=== PATIENT | male | born 1955 | race Caucasian/White ===

== ENCOUNTER 2017-06-22 14:18 | Emergency (ER) | payer OTHER, BC ==
[~2017-06-22] VITALS: Ht 166.4 cm; Wt 100.5 kg
[~2017-06-22 14:18] MED LIST: ASPI1TAB83 PO; CLC6 PO; INSDGIPEN SC; LISI-461 PO; LPT40 PO; METF1000 PO; MTR600X PO; MULTTAB58 PO; NICO4GUM PO; PRT40 PO; ZLF/100 PO
[2017-06-22 14:20] VITALS: TEMP 36.6; Ht 166.4 cm; Wt 100.5 kg
[2017-06-22] MEDS ORDERED: SODIUM CHLORIDE 0.9% 1000ML 1,000 ML IV STA (14:35)
[2017-06-22] MEDS ORDERED: OPTIRAY 320 IV PRN (14:45)
--- NOTE | 2017-06-22 15:02 | EMERGENCY ROOM VISIT NOTE ---
History Report prepared by Cassi: Kp Gates Under the Supervision of: Dr. Ramsey Morley D.O. First contact with patient: 14:24 Chief Complaint: GI ASSESSMENT Stated Complaint: CANT POO CORRECTLY FOR ABOUT 2 MONTHS History of Present Illness The patient is a 61 year old male who presents to the Emergency Room with complaints of intermittent, generalized, abdominal pain beginning a week ago. He currently rates his discomfort a 3/10 in severity. The patient states [facility] and told he has [facility] partial block[facility]. He reports he is able to pass gas, and he passes gas frequently. The patient notes he also passes a large amount of fluid without solid stool. He states he has not passed solid stool for a few weeks, and he passed liquid this morning. The patient reports eating sometimes worsens his discomfort. He denies recent antibiotic use , recent trip, recent travel, [place] recently, vomiting, drinking from streams recently, cough, congestion, and fevers. The patient notes a history of an appendectomy. Source of History: patient Onset: a week ago Position: abdomen (generalized) Symptom Intensity: 3/10 Timing: intermittent Modifying Factors (Worsening): eating (intermittently worsens) Associated Symptoms: No fevers, No cough, No vomiting Note: Associated symptoms: liquid stool, passing gas Denies: recent antibiotic use, recent trip, recent travel, hiking [place] the [place] recently, drinking from streams recently, congestion Review of Systems See HPI for pertinent positives & negatives. A total of 10 systems reviewed and were otherwise negative. Past Medical & Surgical Medical Problems: (1) Back pain with right-sided sciatica (2) Chest pain (3) Depression (4) Diabetes mellitus, type II (5) Dyslipidemia (6) GERD (gastroesophageal reflux disease) (7) H/O pericarditis (8) Intractable back pain (9) Spinal stenosis Surgical Problems: (1) History of appendectomy (2) History of arthroscopic procedure on shoulder (3) Status post lumbar spinal fusion Family History Cervical cancer Depression FH: thyroid disease Social History Smoking Status: Former Smoker Drug Use: none Marital Status: Housing Status: lives with significant other Occupation Status: disabled Current/Historical Medications Scheduled Aspirin (Aspirin), 81 MG PO DAILY Atorvastatin (Lipitor), 40 MG PO DAILY Colchicine (Colcrys), 0.6 MG PO BID Ibuprofen (Ibuprofen), 600 MG PO Q8H Insulin Glargine (Lantus Solostar), 43 SC AMPM Lisinopril (Zestril), 10 MG PO HS Metformin Hcl (Glucophage), 1,000 MG PO BID Multiple Vitamin (Multivitamin), 1 TAB PO DAILY Nicotine Polacrilex (Nicotine Polacrilex), 1 PIECE PO Q2H Pantoprazole (Pantoprazole Sodium), 40 MG PO DAILY Sertraline HCl (Sertraline HCl), 50 MG PO DAILY Allergies Coded Allergies: Statins (Verified Adverse Reaction, Unknown, MUSCLE ACHES, 06/22/17) TOLERATING ATORVASTATIN Physical Exam Vital Signs Date Time Temp Pulse Resp B/P (MAP) Pulse Ox O2 Delivery O2 Flow Rate FiO2 06/22/17 17:44 90 140/85 95 06/22/17 15:49 88 136/88 95 Room Air 06/22/17 14:20 36.6 106 20 155/95 95 Room Air Physical Exam GENERAL: Sitting up in bed, alert, well appearing, well nourished, no distress, non-toxic EYE EXAM: normal conjunctiva. OROPHARYNX: no exudate, no erythema, lips, buccal mucosa, and tongue normal and mucous membranes are moist NECK: supple, no nuchal rigidity, no adenopathy, non-tender LUNGS: Clear to auscultation. Normal chest wall mechanics HEART: no murmurs, S1 normal and S2 normal ABDOMEN: abdomen soft, non-tender, normo-active bowel sounds, no masses, no rebound or guarding. BACK: Back is symmetrical on inspection and there is no deformity, no midline tenderness, no CVA tenderness. SKIN: no rashes and no bruising UPPER EXTREMITIES: upper extremities are grossly normal. LOWER EXTREMITIES: No pitting edema. NEURO EXAM: Normal sensorium, cranial nerves II-XII grossly intact, normal speech, no gross weakness of arms, no gross weakness of legs. Medical Decision & Procedures ER Provider Diagnostic Interpretation: CT:Per my review, radiologist interpretation. CT ABD/PELVIS IV CONTRAST ONLY CLINICAL HISTORY: Generalized abdominal pain COMPARISON STUDY: 11/09/2014 TECHNIQUE: Following the IV administration of 94 mL of Optiray-320, CT scan of the abdomen and pelvis was performed from the lung bases to the proximal femurs. Images are reviewed in the axial, sagittal, and coronal planes. IV contrast was administered without complication. A dose lowering technique was utilized adhering to the principles of ALARA. CT DOSE: 1044.21 mGy.cm FINDINGS: Lower chest: The heart is normal in size and configuration, without pericardial effusion. The lung bases and pleural spaces are clear. Liver: There is hepatic steatosis. No focal masses are visualized. There is focal fatty sparing adjacent to the gallbladder fossa Gallbladder: Cholelithiasis. Spleen: Normal in size and attenuation. Pancreas: Unremarkable. Adrenal glands: Unremarkable. Kidneys: There is a 58 mm right renal cortical cyst. No solid renal masses are visualized. Bowel: There are no transition zones indicate bowel obstruction. By history the appendix is surgically absent. There is no evidence of acute diverticulitis. Peritoneum: There is no intraperitoneal free air or abdominal ascites. There are small) left fat-containing inguinal hernias Vasculature: The abdominal aorta is normal in course and caliber. Adenopathy: None. Pelvic viscera: The bladder, and pelvic viscera are unremarkable. Skeletal structures: There are postsurgical changes present within the lumbar spine. IMPRESSION: 1. No acute intra-abdominal or pelvic findings 2. Hepatic steatosis 3. Cholelithiasis 4. No evidence of bowel obstruction. No evidence of free air 5. Surgically absent appendix 6. No evidence of acute diverticulitis. 7. Small fat-containing inguinal hernias. Electronically signed by: Alexandre Cano M.D. 06/22/2017 4:54 PM Dictated Date/Time: 06/22/2017 4:50 PM Laboratory Results 06/22/17 14:50 Red Blood Count 4.51, Mean Corpuscular Volume 84.9, Mean Corpuscular Hemoglobin 31.0, Mean Corpuscular Hemoglobin Concent 36.6, Mean Platelet Volume 10.2, Neutrophils (%) (Auto) 58.3, Lymphocytes (%) (Auto) 29.3, Monocytes (%) (Auto) 8.5, Eosinophils (%) (Auto) 3.2, Basophils (%) (Auto) 0.4, Neutrophils # (Auto) 4.06, Lymphocytes # (Auto) 2.04, Monocytes # (Auto) 0.59, Eosinophils # (Auto) 0.22, Basophils # (Auto) 0.03 06/22/17 14:50 Test 06/22/17 14:50 White Blood Count 6.96 K/uL (4.8-10.8) Red Blood Count 4.51 M/uL (4.7-6.1) Hemoglobin 14.0 g/dL (14.0-18.0) Hematocrit 38.3 % (42-52) Mean Corpuscular Volume 84.9 fL (80-100) Mean Corpuscular Hemoglobin 31.0 pg (25-34) Mean Corpuscular Hemoglobin Concent 36.6 g/dl (32-36) Platelet Count 267 K/uL (130-400) Mean Platelet Volume 10.2 fL (7.4-10.4) Neutrophils (%) (Auto) 58.3 % Lymphocytes (%) (Auto) 29.3 % Monocytes (%) (Auto) 8.5 % Eosinophils (%) (Auto) 3.2 % Basophils (%) (Auto) 0.4 % Neutrophils # (Auto) 4.06 K/uL (1.4-6.5) Lymphocytes # (Auto) 2.04 K/uL (1.2-3.4) Monocytes # (Auto) 0.59 K/uL (0.11-0.59) Eosinophils # (Auto) 0.22 K/uL (0-0.5) Basophils # (Auto) 0.03 K/uL (0-0.2) RDW Standard Deviation 40.0 fL (36.4-46.3) RDW Coefficient of Variation 12.9 % (11.5-14.5) Immature Granulocyte % (Auto) 0.3 % Immature Granulocyte # (Auto) 0.02 K/uL (0.00-0.02) Anion Gap 8.0 mmol/L (3-11) Est Creatinine Clear Calc Drug Dose 70.0 ml/min Estimated GFR () 73.7 Estimated GFR (Non- 63.6 BUN/Creatinine Ratio 13.3 (10-20) Calcium Level 9.2 mg/dl (8.5-10.1) Total Bilirubin 0.9 mg/dl (0.2-1) Direct Bilirubin mg/dl (0-0.2) Aspartate Amino Transf (AST/SGOT) 71 U/L (15-37) Alanine Aminotransferase (ALT/SGPT) 185 U/L (12-78) Alkaline Phosphatase 99 U/L (45-117) Total Protein 7.1 gm/dl (6.4-8.2) Albumin 3.8 gm/dl (3.4-5.0) Lipase 206 U/L (73-393) Chemistry Specimen Hemolysis Laboratory results per my review. Medications Administered Medications (Trade) Dose Ordered Sig/Chioma Route Start Time Stop Time Status Last Admin Dose Admin Sodium Chloride 1,000 ml @ 999 mls/hr Q1H1M STAT IV 06/22/17 14:35 06/22/17 15:35 DC 06/22/17 14:52 999 MLS/HR ED Course ED COURSE: Vital signs were reviewed and showed situational hypertension and tachycardia. The patients medical record was reviewed The above diagnostic studies were performed and reviewed. ED treatments and interventions as stated above. 1428: The patient was evaluated in room C12B. A complete history and physical examination was performed. 1435: Ordered Sodium Chloride 1000 ml @ 999 mls/hr IV 1730: Upon reevaluation, the patient is resting comfortably. I discussed my findings with the patient and he understands and agrees with the treatment plan. Based on the patients age, coexisting illnesses, exam and lab findings the decision to treat as an outpatient was made. The patient remained stable while under my care. The patient appeared well at the time of discharge. Medical Decision Differential diagnoses includes but is not limited to gastritis, peptic ulcer disease, GERD, gallbladder disease, pancreatitis, small bowel obstruction, acute coronary syndrome, pericarditis, ischemic bowel, irritable bowel disease, irritable bowel syndrome, appendicitis, diverticulitis, malignancy, hernia, urinary tract infection, torsion, perforation, trauma, infectious. Patient is a 51-year-old male that presents the ER for abdominal fullness, pain and diarrhea. He notes he has had abdominal pain for the past 2 weeks. He was told by his primary care physician that he may have an obstruction was sent in for evaluation. On exam he is otherwise fairly unremarkable. There is no signs of peritonitis. No vomiting. He is moving stool through. He is also eating and keeping food down. No fevers. Vitals are stable. IV was established and labs were obtained. CBC along with BMP, LFTs, bilirubin lipase is unremarkable. Patient has no urinary complaints. CT abdomen pelvis was unremarkable. Patient was given fluids and felt significantly better. He was updated at bedside. Nothing to suggest obstruction. Any infectious etiology within the abdomen. He was updated and discharged follow-up with PCP as an outpatient. He will try MiraLAX prep as he does feel constipated. Discussed with Pt concerning signs and symptoms to watch out for. Pt was instructed to follow up with their PCP and discussed with the patient their option to return to the ED at anytime for persistent or worsening symptoms. The appropriate anticipatory guidance and out-patient management, including indications for return to the emergency department, were explained at length to the patient and understood. Medication Reconcilliation Current Medication List: was personally reviewed by me Blood Pressure Screening Patient's blood pressure: Elevated blood pressure Blood pressure disposition: Elevated BP felt to be situational Impression Primary Impression: Abdominal pain Scribe Attestation The scribe's documentation has been prepared under my direction and personally reviewed by me in its entirety. I confirm that the note above accurately reflects all work, treatment, procedures, and medical decision making performed by me. Departure Information Dispostion Home / Self-Care Referrals Brandon Jay III, M.D. (PCP) Forms HOME CARE DOCUMENTATION FORM, IMPORTANT VISIT INFORMATION Patient Instructions Abdominal Pain - [facility], [facility] Additional Instructions Please follow up with your primary care doctor with in the next 24 hours. Any worsening of your symptoms, please return to the ED immediately. This includes any fevers greater than 100.4, worsening pain, chest pain, shortness breath, persistent nausea, vomiting, unable to eat or drink, or any other concerning signs or symptoms from your standpoint. Please take small bottle of MiraLAX 250 g and mix with 64 ounces of Gatorade. Please drink 8 ounces every 15-20 minutes until you have a bowel movement. At this time he will continue to have diarrhea. Please try to remain hydrated. Problem Qualifiers Primary Impression: Abdominal pain Abdominal location: unspecified location Qualified Codes: R10.9 - Unspecified abdominal pain
[2017-06-22 15:36] LABS: BASO % 0.4 %; BASO ABS # 0.03 K/uL (0-0.2); EOS % 3.2 %; EOS ABS # 0.22 K/uL (0-0.5); HEMATOCRIT 38.3 % (42-52); IG# 0.02 K/uL (0.00-0.02); LYMPH % 29.3 %; LYMPH ABS # 2.04 K/uL (1.2-3.4); MEAN CELL VOLUME 84.9 fL (80-100); MEAN CORPUSCULAR HGB CONC 36.6 g/dl (32-36); MEAN PLATELET VOLUME 10.2 fL (7.4-10.4); MONO % 8.5 %; MONO ABS # 0.59 K/uL (0.11-0.59); NEUT % 58.3 %; NEUT ABS # 4.06 K/uL (1.4-6.5); PLATELET COUNT 267 K/uL (130-400); RED CELL DISTRIBUTION WIDTH CV 12.9 % (11.5-14.5); WHITE BLOOD COUNT 6.96 K/uL (4.8-10.8)
[2017-06-22 15:49] LABS: ALBUMIN 3.8 gm/dl (3.4-5.0); CALCIUM 9.2 mg/dl (8.5-10.1); TOTAL PROTEIN 7.1 gm/dl (6.4-8.2)
[2017-06-22 15:54] LABS: CREATININE 1.22 mg/dl (0.60-1.40)
--- NOTE | 2017-06-22 16:56 | DIAGNOSTIC IMAGING REPORT ---
CT ABD/PELVIS IV CONTRAST ONLY CLINICAL HISTORY: Generalized abdominal pain COMPARISON STUDY: 11/09/2014 TECHNIQUE: Following the IV administration of 94 mL of Optiray-320, CT scan of the abdomen and pelvis was performed from the lung bases to the proximal femurs. Images are reviewed in the axial, sagittal, and coronal planes. IV contrast was administered without complication. A dose lowering technique was utilized adhering to the principles of ALARA. CT DOSE: 1044.21 mGy.cm FINDINGS: Lower chest: The heart is normal in size and configuration, without pericardial effusion. The lung bases and pleural spaces are clear. Liver: There is hepatic steatosis. No focal masses are visualized. There is focal fatty sparing adjacent to the gallbladder fossa Gallbladder: Cholelithiasis. Spleen: Normal in size and attenuation. Pancreas: Unremarkable. Adrenal glands: Unremarkable. Kidneys: There is a 58 mm right renal cortical cyst. No solid renal masses are visualized. Bowel: There are no transition zones indicate bowel obstruction. By history the appendix is surgically absent. There is no evidence of acute diverticulitis. Peritoneum: There is no intraperitoneal free air or abdominal ascites. There are small) left fat-containing inguinal hernias Vasculature: The abdominal aorta is normal in course and caliber. Adenopathy: None. Pelvic viscera: The bladder, and pelvic viscera are unremarkable. Skeletal structures: There are postsurgical changes present within the lumbar spine. IMPRESSION: 1. No acute intra-abdominal or pelvic findings 2. Hepatic steatosis 3. Cholelithiasis 4. No evidence of bowel obstruction. No evidence of free air 5. Surgically absent appendix 6. No evidence of acute diverticulitis. 7. Small fat-containing inguinal hernias. Electronically signed by: Alexandre Cano M.D. 06/22/2017 4:54 PM Dictated Date/Time: 06/22/2017 4:50 PM
[2017-06-22 17:44] VITALS: BP 140/85; PULSE 90; O2SAT 95
== END 2017-06-22 17:47 | disposition home or self-care (01) ==
LOC: C.EDB 14:19 → C.EDC 17:47
DX: R10.9 Unspecified abdominal pain (principal); F32.9 Major depressive disorder, single episode, unspecified; E11.9 Type 2 diabetes mellitus without complications; E78.5 Hyperlipidemia, unspecified; K21.9 Gastro-esophageal reflux disease without esophagitis; Z98.1 Arthrodesis status; Z80.49 Family history of malignant neoplasm of other genital organs; Z81.8 Family history of other mental and behavioral disorders; Z87.891 Personal history of nicotine dependence; Z79.82 Long term (current) use of aspirin; Z79.4 Long term (current) use of insulin; Z79.84 Long term (current) use of oral hypoglycemic drugs; Z79.899 Other long term (current) drug therapy; Z88.8 Allergy status to other drugs, medicaments and biological substances

== ENCOUNTER 2019-08-15 05:42 | Observation (INO) ==
--- NOTE | 2019-08-13 08:26 | Anesthesiology Consultation ---
Date of Service August 13, 2019 Assessment & Plan (1) Encounter for pre-operative examination: COVID Status: As of 08/10 nurse assessment, patient denies travel to endemic area, known exposure/sick contacts, or symptoms of COVID19. Preoperative COVID19 testing completed on 08/11, results pending. Chart Review Chart Review: Acceptable Risk for Surgery and Patient NOT seen in Pre Admission Testing Consults Requested none ASA ASA3 Proposed Anesthesia Anesthesia Type: General Risk / Benefits Reviewed With: PT / POA / Parent / Guardian, Accepts Plan and Informed Consent Obtained Additional Comments: covid test negative History Surgery Operation Date: 08/15/19 07:15 Proposed Procedures p Right Thyroid Lobectomy, Possible Total - Uzbek How MD [place] Height/Weight Height: 5 ft 6 in Weight: 92.986 kg Allergies Allergy/AdvReac Type Severity Reaction Status Date / Time Lhalnyr-Asm-Zwh Reductase AdvReac Unknown MUSCLE Verified 08/15/19 06:24 Inhibitor ACHES Medications Home Medications Medication Instructions Recorded Confirmed Last Taken aspirin 81 mg PO QAM 08/11/19 08/15/19 08/14/19 09:00 atorvastatin 40 mg PO HS 08/11/19 08/15/19 08/14/19 21:00 diclofenac sodium 75 mg PO BID 08/11/19 08/15/19 08/14/19 21:00 insulin glargine [Lantus U-100 18 unit SUBCUT BID 08/11/19 08/15/19 08/14/19 21:00 Insulin] liraglutide [Victoza 2-Marc] 1.8 mg SUBCUT QAM 08/11/19 08/15/19 08/14/19 09:00 lisinopril 10 mg PO HS 08/11/19 08/15/19 08/14/19 21:00 metformin 1,000 mg PO BID 08/11/19 08/15/19 08/14/19 21:00 multivitamin 1 cap PO QAM 08/11/19 08/15/19 08/14/19 09:00 Active Medications Generic Name Dose Route Start Last Admin Trade Name Freq PRN Reason Stop Dose Admin Lactated Ringer's 1,000 mls @ 15 mls/hr 08/15/19 06:00 08/15/19 06:12 Lr IV 08/16/19 05:59 15 mls/hr .Q24H MARLINE Administration NPO Date Last Intake of Fluids: 08/14/19 Time Last Intake of Fluids: 18:00 Date Last Intake of Solids: 08/14/19 Time Last Intake of Solids: 18:00 Past Medical History Medical History Depression (Chronic) Diabetes mellitus, type II (Chronic) Dyslipidemia (Chronic) GERD (gastroesophageal reflux disease) (Chronic) H/O pericarditis (Resolved) about 2 years ago follow with Dr. Smith at [facility] Hypertension Spinal stenosis (Chronic) Thyroid nodule Exercise / Class Metabolic Activity III < 4 Walking/Shop/Light housework Past Surgical History Surgical History History of appendectomy (Resolved) History of arthroscopic procedure on shoulder (Resolved) "R shoulder" Hx of arthroscopy of left knee Status post lumbar spinal fusion (Resolved) x 2 Past Anesthesia History No Hx of Anesthesia Complications and No Family Hx of Anesthesia Complications History of PONV No Hx of PONV and No Hx of Motion Sickness Social History Smoking Status: Never smoker Do You Dip or Chew Tobacco: Yes (advised) Hx Alcohol Use: No Hx Substance Use: No substance use type: does not use Physical Exam Vital Signs Last Vital Signs Temp 36.7 C 08/15/19 06:22 Pulse 86 08/15/19 06:22 Resp 20 08/15/19 06:22 BP 132/72 08/15/19 06:22 Pulse Ox 95 08/15/19 06:22 Constitutional + obese ENMT Mouth: no dentition abnormality Thyromental Distance: > or= 3.5 Finger Breadths Mallampati Class: II Neck normal visual inspection, trachea midline and + facial hair; neck extension not limited Respiratory normal respiratory effort Auscultation: lungs clear to auscultation bilaterally Cardiovascular Rate/Rhythm: regular rate and regular rhythm Heart Sounds: no murmur Vessels: no carotid bruit Musculoskeletal Spine: normal cervical ROM Extremities: extremities normal to inspection Neurologic moves all extremities Motor/Sensory: no sensory deficit Psychiatric Orientation: alert and oriented x 3 Testing Laboratory Results 08/15/19 06:02 POC Glucose 145 H 08/12/19 WBC: 7.62 H/H: 14/40.3 PLATELETS: 291 SODIUM: 137 POTASSIUM: 4.2 CHLORIDE: 104 CO2: 27 BUN: 12 CREATININE: 1.11 GLUCOSE: 151 Electrocardiogram Date: 08/12/19 Findings: + ST @ (102bpm) No significant change from 06/15/17.
--- NOTE | 2019-08-14 07:30 | History & Physical Report ---
Date of Service August 14, 2019 Assessment & Plan (1) Thyroid nodule: Right thyroid lobectomy, possible total thyroidectomy pending frozen section. History of Present Illness Chief Complaint: Right thyroid nodule Primary Care Provider: Antonina Grande 64-year-old male who was found to have a right thyroid nodule with ultrasound showing highly suspicious changes for right thyroid lobectomy and possible total thyroidectomy pending frozen section Allergies Allergy/AdvReac Type Severity Reaction Status Date / Time Urebuxv-Esk-Xai Reductase AdvReac Unknown MUSCLE Verified 08/11/19 10:16 Inhibitor ACHES Home Medications Home Medications Medication Instructions Recorded Confirmed Type aspirin 81 mg PO QAM 08/11/19 08/11/19 History atorvastatin 40 mg PO HS 08/11/19 08/11/19 History diclofenac sodium 75 mg PO BID 08/11/19 08/11/19 History insulin glargine [Lantus U-100 18 unit SUBCUT BID 08/11/19 08/11/19 History Insulin] liraglutide [Victoza 2-Marc] 1.8 mg SUBCUT QAM 08/11/19 08/11/19 History lisinopril 10 mg PO HS 08/11/19 08/11/19 History metformin 1,000 mg PO BID 08/11/19 08/11/19 History multivitamin 1 cap PO QAM 08/11/19 08/11/19 History Past Med/Surg History Medical History Depression (Chronic) Diabetes mellitus, type II (Chronic) Dyslipidemia (Chronic) GERD (gastroesophageal reflux disease) (Chronic) H/O pericarditis (Resolved) about 2 years [address] Smith at [facility] Hypertension Spinal stenosis (Chronic) Thyroid nodule Surgical History History of appendectomy (Resolved) History of arthroscopic procedure on shoulder (Resolved) "R shoulder" Hx of arthroscopy of left knee Status post lumbar spinal fusion (Resolved) x 2 Social History Preferred Language: Kazakh Communication Ability: Effective [employer] Consultant Required: No Beliefs That Will Affect Care: None Current Living Situation: Significant Other Feels Safe at Home: Yes Smoking Status: Never smoker Second Hand Exposure: No ; Hx Alcohol Use: No Hx Substance Use: No Physical Exam Constitutional: WD/WN, vitals as above Eyes: PERRL, conjunctivae normal, anicteric sclerae ENMT: external ear and nose normal, oropharynx normal Neck: 2.5 cm right thyroid nodule which is firm Respiratory: normal respiratory effort, lungs clear to auscultation Cardiovascular: RRR, no murmur, no edema
[2019-08-15] MEDS ORDERED: LR 15ML/HR IV SCH (06:00)
[2019-08-15] MEDS ORDERED: ONDANSETRON INJ 2 MG/ML 2 ML VIAL ONE (06:37)
[2019-08-15] MEDS ORDERED: ROCURONIUM BROMIDE 10 MG/ML 5 ML VIAL IV ONE (06:37)
[2019-08-15] MEDS ORDERED: LIDOCAINE HCL 2% 2 ML VIAL/AMP(20MG/ML) INFIL ONE (06:37)
[2019-08-15] MEDS ORDERED: DEXAMETHASONE SOD INJ 4 MG/ML VIAL ONE (06:37)
[2019-08-15] MEDS ORDERED: fentaNYL citrate 100 MCG/2 ML VIAL ONE ×4 (06:37→10:45)
[2019-08-15] MEDS ORDERED: LARYING-O-JET KIT (LTA) ONE (06:37)
[2019-08-15] MEDS ORDERED: PROPOFOL IV EMULSION 10 MG/ML 20 ML VIAL IV ONE (06:37)
[2019-08-15] MEDS ORDERED: MIDAZOLAM HCL 1 MG/ML 2ML VIAL ONE (06:37)
[2019-08-15] MEDS ORDERED: ACETAMINOPHEN 1000 MG/100 ML IV IV ONE (06:46)
--- NOTE | 2019-08-15 07:02 | History & Physical Bridge Note ---
Date of Service August 15, 2019 History & Physical Bridge Note I have examined the patient, reviewed the History & Physical and in the interval since the performance of the History & Physical I have noted the following changes of clinical significance: no changes noted
[2019-08-15] MEDS ORDERED: BACITRACIN OINT 15 GM TUBE ONE (07:09)
[2019-08-15] MEDS ORDERED: LIDOCAINE/EPINE 2% 1:100,000 20ML ONE (07:09)
[2019-08-15] MEDS ORDERED: PHENYLEPHRINE 100MCG/ML 5ML SYR ONE (07:32)
[2019-08-15] MEDS ORDERED: CEFAZOLIN 250 MG/ML 1 GM VIAL ONE (07:32)
[2019-08-15] MEDS ORDERED: CEFAZOLIN 2000MG 2,000 MG/15 ML SYR IV ONE (08:07)
[2019-08-15] MEDS ORDERED: PROMETHAZINE HCL 12.5 MG in SODIUM CHLORIDE 0.9% 50 ML IV PRN (08:19)
[2019-08-15] MEDS ORDERED: FLUMAZENIL 0.1 MG/1 ML 10 ML VIAL IV PRN (08:19)
[2019-08-15] MEDS ORDERED: fentaNYL citrate 100 MCG/2 ML VIAL IV PRN (08:19)
[2019-08-15] MEDS ORDERED: ATROPINE SULFATE 0.1 MG/ML 10ML SYR IV PRN (08:19)
[2019-08-15] MEDS ORDERED: LABETALOL HCL IV 5 MG/ML 20ML IV PRN (08:19)
[2019-08-15] MEDS ORDERED: ONDANSETRON INJ 2 MG/ML 2 ML VIAL IV PRN ×2 (08:19→10:57)
[2019-08-15] MEDS ORDERED: NALOXONE HCL 0.4 MG/1 ML VIAL/CARP IV PRN (08:19)
[2019-08-15] MEDS ORDERED: ePHEDrine sulfate 50 MG/ML AMP IV PRN (08:19)
[2019-08-15] MEDS ORDERED: PHENYLEPHRINE HCL 10 MG/ML VIAL ONE (08:49)
[2019-08-15] MEDS ORDERED: NEOSTIGMINE METHYLSULFATE 5 MG/5 ML SYR ONE (10:11)
[2019-08-15] MEDS ORDERED: GLYCOPYRROLATE 0.2 MG/ML VIAL ONE (10:11)
--- NOTE | 2019-08-15 11:08 | Operative Report ---
Post Operative Report Pre & Post Diagnosis Operation Date: 08/15/19 07:15 Pre-Op Diagnosis: Right Thyroid Nodule Post-Op Diagnosis: Right Thyroid Nodule I identified the patient and participated in the time-out.: Yes Procedure Operation Date: 08/15/19 07:15 Actual Procedures p Right Thyroid Lobectomy(Right) - Tash Hansen MD Surgeon Tash Hansen MD Doughnut Dough Mixer None Estimated Blood Loss 75 Findings Consistent with Post-Op Diagnosis Specimens Right lobe of thyroid Anesthesia Type General Complications none Disposition Accompanied Patient To Recovery: Yes Disposition: Recovery Room Indications Right thyroid nodule found to be highly suspicious on ultrasound Description of Procedure He was brought to the operating room, properly identified, prepped with ChloraPrep and draped in the usual sterile manner after general endotracheal anesthesia. The incision with the routine curvilinear incision above the sternum which was injected with 1% Xylocaine with 1-1000 strength epinephrine. Incision was made using 15 blade through the skin and subcutaneous layer and then the platysma layer using the 15 blade. Superior and inferior flaps were elevated underneath the platysma layer encountering the anterior jugular veins on the right and on the left side which were tied after dividing them with the Metzenbaum scissors with 2-0 silk ties. Midline dissection was performed the sternal hyoid muscle and then the sternothyroid muscle which were retracted laterally on the right side to expose the thyroid lobe dissection was started inferiorly however there was moderately dense amount of scar tissue and inflammation. Therefore the right middle thyroidal vein was clamped divided and tied with silk ties and then superior dissection was performed using the harmonic scalpel and the bipolar cautery and dissecting with the Metzenbaum scissors and the hemostat to isolate the superior thyroidal vessels which were clamped divided and ligated with silk ties the superior pole from the surrounding tissue. The isthmus was transected using the harmonic scalpel and the very suspensory ligament was dissected controlling for bleeders with bipolar cautery and then dividing the Rondon's suspensory ligament using the 15 blade and the Metzenbaum scissors. Inferiorly the lower parathyroid gland along with the inferior thyroidal artery were identified and preserved clamping the branch of the artery extending superiorly into the thyroid and then dividing it with the Metzenbaum scissors and then tying it with a 2-0 silk tie. The inferior thyroidal veins were divided with the harmonic scalpel. Finally the recurrent laryngeal nerve was found underneath the parathyroid gland and underneath the artery and then extending underneath the cricothyroid membrane into the cricothyroid space. 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 The incision was closed by approximating the strap muscles in the midline and then approximating the platysma muscle with 3-0 Vicryl pop-off sutures and then closing the skin with interrupted 5-0 nylon sutures. A Liu drain was placed in the depth of the wound and sewn in place with a 3-0 silk suture. A Melgoza Destiny dressing was placed. He tolerated the procedure well and was taken recovery area in satisfactory condition. I attest to the content of the Intraoperative Record and any orders documented therein. Any exceptions are noted below.
[2019-08-15] MEDS ORDERED: METOPROLOL TARTRATE 1 MG/ML VIAL IV ONE (11:32)
[2019-08-15] MEDS: METOPROLOL TARTRATE 1 MG/ML VIAL IV STA ×2 (11:33→11:43)
--- NOTE | 2019-08-15 11:56 | Anesthesiology Progress Note ---
Date of Service August 15, 2019 Anesthesia Post Procedure Vital Signs Vital Signs: Temp Pulse Pulse Pulse Resp BP BP 08/15/19 11:55 37.0 C 99 H 13 104/65 08/15/19 11:45 98 H 24 122/63 08/15/19 11:43 99 H 117/65 08/15/19 11:35 104 H 18 110/76 08/15/19 11:33 111 H 119/72 08/15/19 11:25 111 H 12 114/65 08/15/19 11:15 115 H 12 107/69 08/15/19 11:05 116 H 15 106/72 08/15/19 10:55 119 H 15 128/79 08/15/19 10:49 37.4 C 119 H 12 118/64 08/15/19 06:22 36.7 C 86 20 132/72 Pulse Ox 08/15/19 11:55 95 08/15/19 11:45 94 08/15/19 11:43 08/15/19 11:35 99 08/15/19 11:33 08/15/19 11:25 98 08/15/19 11:15 97 08/15/19 11:05 97 08/15/19 10:55 98 08/15/19 10:49 97 08/15/19 06:22 95 Pain Intensity Back: Pain Intensity: 5 Transfer of Care Handoff Completed per policy Notes Mental Status: alert / awake / arousable Patient Amnestic to Procedure: Yes Nausea / Vomiting: adequately controlled Pain: adequately controlled Airway Patency, RR, SpO2: stable & adequate BP & HR: stable & adequate Hydration State: stable & adequate Anesthetic Complications: no major complications apparent
[2019-08-15] MEDS ORDERED: LACTATED RINGER'S 1,000 ML IV SCH (12:15)
[2019-08-15 12:31] LABS: Calcium 8.7 mg/dl (8.5-10.1)
[2019-08-15 12:35] LABS: Albumin Level 3.5 gm/dl (3.4-5.0); Magnesium 1.7 mg/dl (1.8-2.4); Phosphorus 2.9 mg/dl (2.5-4.9)
[2019-08-15] MEDS: OXYCODONE/ACETAMINOPHEN 5mg/325mg TAB PO PRN ×2 (14:15→18:13)
[2019-08-15] MEDS ORDERED: MELATONIN 3 MG TAB PO PRN (15:35)
[2019-08-15] MEDS ORDERED: ZOLPIDEM TARTRATE 10 MG TAB PO PRN (15:35)
[2019-08-15] MEDS ORDERED: GLUCAGON FOR INJ 1 MG VIAL IM PRN (20:15)
[2019-08-15] MEDS ORDERED: GLUCOSE 10 TABS/TUBE PO PRN (20:15)
[2019-08-15] MEDS ORDERED: CARBOHYDRATES FOR HYPOGLYCEMIA PO PRN (20:15)
[2019-08-15] MEDS ORDERED: DEXTROSE 50% 50 ML SYRINGE IV PRN (20:15)
[2019-08-15] MEDS ORDERED: GLUCOSE 40% GEL 15 GM TUBE PO PRN (20:15)
[2019-08-15] MEDS ORDERED: ATORVASTATIN 40 MG TAB PO SCH (21:00)
[2019-08-15] MEDS ORDERED: lisinopriL 10 MG TAB PO SCH (21:00)
[2019-08-15] MEDS: INSULIN GLARGINE SOLOSTAR 100 UNITS/ML 3 ML PEN SQ SCH (21:18)
[2019-08-16] MEDS: OXYCODONE/ACETAMINOPHEN 5mg/325mg TAB PO PRN (00:03)
[2019-08-16] MEDS ORDERED: TRAMADOL HCL 50 MG TABLET PO PRN (03:05)
--- NOTE | 2019-08-16 08:12 | Discharge Summary ---
Date of Service August 16, 2019 Admission HPI Per Admitting Provider 64-year-old male who was found to have a right thyroid nodule with ultrasound showing highly suspicious changes for right thyroid lobectomy and possible total thyroidectomy pending frozen section Admission Exam (Per Admitting) Constitutional WD/WN, vitals as above Eyes PERRL, conjunctivae normal, anicteric sclerae ENMT external ear and nose normal, oropharynx normal Respiratory normal respiratory effort, lungs clear to auscultation Cardiovascular RRR, no murmur, no edema Discharge Data Procedures Performed Operation Date: 08/15/19 07:15 Actual Procedures p Right Thyroid Lobectomy(Right) - Tash Hansen MD Hospital Course (1) Thyroid nodule: Right thyroid lobectomy perforemed, no complications, nerve intact, preserved parathyroid, drained removed next day, no infection or hematoma, minimal to no drainage
[2019-08-16] MEDS: INSULIN GLARGINE SOLOSTAR 100 UNITS/ML 3 ML PEN SQ SCH (09:05)
== END 2019-08-16 09:25 | disposition home or self-care (01) ==
LOC: 3N 05:42 → ASU 05:42

== ENCOUNTER 2019-08-29 18:18 | Inpatient (IN) ==
[2019-08-29] MEDS ORDERED: SODIUM CHLORIDE 0.9% 1000ML 1,000 ML IV SCH ×2 (18:45→19:45)
[2019-08-29] MEDS ORDERED: DAPTOMYCIN CONSULT ACTIVE PRN (18:45)
[2019-08-29] MEDS ORDERED: CEFEPIME 2,000 MG/20 ML VIAL IV STA (18:45)
[2019-08-29] MEDS ORDERED: DAPTOmycin 375 MG in SYRINGE 0 ML IV ONE (18:45)
--- NOTE | 2019-08-29 18:53 | Emergency Department Note ---
Impression & Plan Sepsis, Deep postoperative wound infection ED Provider Note INFORMANT: [Patient] ED PROVIDER(S): Brandon Ventura MD CHIEF COMPLAINT: Wound infection PLAN: Disposition: Admitted Condition: [Good] MEDICAL DECISION MAKING: Patient presented to the emergency department. He was tachycardic and febrile. He had swelling and pain around the incision. This was concerning for postop wound infection with signs of sepsis. Appropriate fluids were ordered. The patient was given broad-spectrum antibiotic coverage with cefepime and daptomycin after blood cultures were obtained. Laboratory studies chest x-ray ordered. Urgent ENT consultation placed. Patient has a leukocytosis on CBC. Chemistry panel was unremarkable. Chest x-ray negative. Patient was treated with IV Dilaudid and Zofran. His surgeon, presented to the emergency department and did perform an incision and drainage. On reassessment the patient was feeling better. A consultation was placed with the [facility] service, Dr. Rey. The patient was admitted for further treatment. Triage Nursing notes reviewed and agree them. [Additional history obtained from] patient's Vital Signs: reviewed and remarkable for fever and tachycardia Differential diagnosis: Postoperative wound infection, MRSA infection, sepsis, viral syndrome, pneumonia, influenza, meningitis, urinary tract infection, bacteremia, as well as other pathologies. Diagnostics interpreted by me: ECG: Rate: 120 Rhythm: Sinus tachycardia [place]:Normal QRS:Normal ST segements:No elevation or depression Other:No PACs or PVCs Cardiac Monitoring: Cardiac monitoring ordered by me: The patient was placed on continuous cardiac monitoring and observed. It revealed a normal sinus rhythm at 117 beats per minute without ectopy or evidence of dysrhythmia. Imaging studies: Deferred Consultation(s): Ear nose and throat, Internal medicine, [facility] service HPI: The patient is a 64 year old male who presents to the Emergency Room with complaints of swelling and purulent drainage from his neck incision. This s tarted 2 days ago and is worsening over the last day. The patient also notes the following associated symptoms, fever, difficulty swallowing. The patient has found no relieving factors. Current pain is rated as 6/10. Patient notes he had his stitches removed from his thyroid surgery 2 days ago. After he left the office he noted pus draining from the suture site, midline, superior to the incision. He did not tell his surgeon at that time. He called the office today but his surgeon, dr parekh, was unavailable. Pt denies LOC, headache, diaphoresis, visual changes, posterior neck pain, chest pain, breathing difficulties, nausea, vomiting, abdominal pain, back pain, melena, hematochezia, urinary symptoms, numbness, weakness, lymphadenopathy, rash, or other complaints. ROS: See above HPI for pertinent positives & negatives. A total of [10] systems reviewed and were otherwise negative. PAST MEDICAL HISTORY:[See Below] diabetes, hypertension PAST SURGICAL HISTORY:[See Below]appendectomy FAMILY HISTORY:[See Below] SOCIAL HISTORY:[See Below] HOME MEDICATIONS:[See Below] ALLERGIES:[See Below] VITALS:[See Below] PHYSICAL EXAMINATION: GENERAL: Awake, alert,"-appearing, in no distress HENT: Normocephalic, atraumatic. Oropharynx unremarkable. EYES: Normal conjunctiva. Sclera non-icteric. NECK: Inspection reveals significant swelling around his neck surgical incision scar. There is no purulent drainage. Mild redness. Tender to palpation No nuchal rigidity. FROM. No stridor. RESPIRATORY: Clear to auscultation. No wheezes. No rales. Normal respiratory effort. CARDIAC: Tachycardic rate. Normal rhythm. No murmurs. No rubs. Extremities warm and well perfused. Pulses equal. No JVD. GI: Soft, non-distended. No tenderness to palpation. No rebound or guarding. No masses. RECTAL: Deferred. MUSCULOSKELETAL: Atraumatic. Chest examination reveals no tenderness. The back is symmetrical on inspection without obvious abnormality. There is no CVA tenderness to palpation. No joint edema. LOWER EXTREMITIES: Calves are equal size bilaterally and non-tender. No edema. No discoloration. NEURO: Normal sensorium. No sensory or motor deficits noted. SKIN: No rash or jaundice noted. ED COURSE: [Critical Care:] [None] Brandon Ventura MD Past Med/Surg History Medical History Depression (Chronic) Diabetes mellitus, type II (Chronic) Dyslipidemia (Chronic) GERD (gastroesophageal reflux disease) (Chronic) H/O pericarditis (Resolved) about 2 years ago follow with Dr. Smith at [facility] Hypertension Spinal stenosis (Chronic) Thyroid nodule Surgical History History of appendectomy (Resolved) History of arthroscopic procedure on shoulder (Resolved) "R shoulder" Hx of arthroscopy of left knee Status post lumbar spinal fusion (Resolved) x 2 Social History Smoking Status: Never smoker Tobacco Type: Smokeless Tobacco (Dip or Chew) Second Hand Exposure: No; Hx Alcohol Use: No Hx Substance Use: No Preferred Language: Greek Communication Ability: Effective Fusing Line Inspector Required: No Beliefs That Will Affect Care: None Current Living Situation: Significant Other Feels Safe at Home: Yes Allergies Allergies Allergy/AdvReac Type Severity Reaction Status Date / Time Pxodlbo-[id number] Reductase AdvReac Unknown MUSCLE Verified 08/15/19 06:24 Inhibitor ACHES Home Meds Home Medications Medication Instructions Recorded Confirmed Lantus U-100 Insulin 18 unit SUBCUT BID 08/11/19 08/29/19 Victoza 2-Marc 1.8 mg SUBCUT QAM 08/11/19 08/29/19 aspirin 81 mg PO QAM 08/11/19 08/29/19 atorvastatin 40 mg PO HS 08/11/19 08/29/19 diclofenac sodium 75 mg PO BID 08/11/19 08/29/19 lisinopril 10 mg PO HS 08/11/19 08/29/19 metformin 1,000 mg PO BID 08/11/19 08/29/19 multivitamin 1 cap PO QAM 08/11/19 08/29/19 methocarbamol 500 mg PO BID 08/29/19 08/29/19 nicotine (polacrilex) 2 mg BUCCAL QID PRN 08/29/19 08/29/19 polyethylene glycol 3350 17 g PO DAILY PRN 08/29/19 08/29/19 Results & Data (ED) Vital Signs Vital Signs - 24 hr 08/29/19 18:25 08/29/19 18:51 08/29/19 19:08 Temperature 37.8 C H Temperature Source Oral Pulse Rate 138 H 121 H Pulse Rate from SpO2 Sensor Pulse Rhythm Regular Pulse Strength Normal Respiratory Rate 18 15 Respiratory Effort / Characteristics Non-Labored Spontaneous Non-Labored Respiratory Depth Normal Respiratory Pattern Regular Blood Pressure 123/76 Blood Pressure Mean 91 Blood Pressure Position Sitting Pulse Oximetry 97 Oxygen Delivery Method Room Air Room Air Room Air Sepsis Recent Fever Within 48 Hours No Sepsis New/Unexplained Change in Mental Status No Sepsis Action Taken by Nursing No Action Required 08/29/19 19:10 08/29/19 19:12 08/29/19 19:15 Temperature Temperature Source Pulse Rate 119 H 120 H 120 H Pulse Rate from SpO2 Sensor Pulse Rhythm Pulse Strength Respiratory Rate 15 14 28 H Respiratory Effort / Characteristics Respiratory Depth Respiratory Pattern Blood Pressure 123/87 134/86 Blood Pressure Mean 95 105 Blood Pressure Position Pulse Oximetry Oxygen Delivery Method Room Air Room Air Room Air Sepsis Recent Fever Within 48 Hours Sepsis New/Unexplained Change in Mental Status Sepsis Action Taken by Nursing 08/29/19 19:20 08/29/19 19:30 08/29/19 19:31 Temperature Temperature Source Pulse Rate 117 H 115 H 113 H Pulse Rate from SpO2 Sensor Pulse Rhythm Pulse Strength Respiratory Rate 12 16 16 Respiratory Effort / Characteristics Respiratory Depth Respiratory Pattern Blood Pressure 145/100 H Blood Pressure Mean 105 Blood Pressure Position Pulse Oximetry Oxygen Delivery Method Room Air Room Air Room Air Sepsis Recent Fever Within 48 Hours Sepsis New/Unexplained Change in Mental Status Sepsis Action Taken by Nursing 08/29/19 19:40 08/29/19 19:45 08/29/19 19:50 Temperature Temperature Source Pulse Rate 118 H 112 H 108 H Pulse Rate from SpO2 Sensor Pulse Rhythm Pulse Strength Respiratory Rate 21 10 L 16 Respiratory Effort / Characteristics Respiratory Depth Respiratory Pattern Blood Pressure 142/100 H Blood Pressure Mean 109 Blood Pressure Position Pulse Oximetry Oxygen Delivery Method Room Air Room Air Room Air Sepsis Recent Fever Within 48 Hours Sepsis New/Unexplained Change in Mental Status Sepsis Action Taken by Nursing 08/29/19 20:00 08/29/19 20:01 08/29/19 20:10 Temperature Temperature Source Pulse Rate 116 H 109 H 113 H Pulse Rate from SpO2 Sensor Pulse Rhythm Pulse Strength Respiratory Rate 24 16 22 Respiratory Effort / Characteristics Respiratory Depth Respiratory Pattern Blood Pressure 132/99 Blood Pressure Mean 108 Blood Pressure Position Pulse Oximetry Oxygen Delivery Method Room Air Room Air Room Air Sepsis Recent Fever Within 48 Hours Sepsis New/Unexplained Change in Mental Status Sepsis Action Taken by Nursing 08/29/19 20:15 08/29/19 20:20 08/29/19 20:30 Temperature Temperature Source Pulse Rate 111 H 115 H 112 H Pulse Rate from SpO2 Sensor Pulse Rhythm Pulse Strength Respiratory Rate 17 22 25 H Respiratory Effort / Characteristics Respiratory Depth Respiratory Pattern Blood Pressure 159/94 H 160/109 H Blood Pressure Mean 110 118 Blood Pressure Position Pulse Oximetry Oxygen Delivery Method Room Air Room Air Room Air Sepsis Recent Fever Within 48 Hours Sepsis New/Unexplained Change in Mental Status Sepsis Action Taken by Nursing 08/29/19 20:31 08/29/19 20:40 08/29/19 20:45 Temperature Temperature Source Pulse Rate 114 H 111 H 111 H Pulse Rate from SpO2 Sensor 109 H 111 H Pulse Rhythm Pulse Strength Respiratory Rate 12 16 14 Respiratory Effort / Characteristics Respiratory Depth Respiratory Pattern Blood Pressure 168/116 H Blood Pressure Mean 123 Blood Pressure Position Pulse Oximetry 96 93 Oxygen Delivery Method Room Air Room Air Room Air Sepsis Recent Fever Within 48 Hours Sepsis New/Unexplained Change in Mental Status Sepsis Action Taken by Nursing 08/29/19 20:50 08/29/19 21:00 08/29/19 21:01 Temperature Temperature Source Pulse Rate 110 H 112 H 110 H Pulse Rate from SpO2 Sensor 110 H 112 H 100 H Pulse Rhythm Pulse Strength Respiratory Rate 13 14 18 Respiratory Effort / Characteristics Respiratory Depth Respiratory Pattern Blood Pressure 120/75 Blood Pressure Mean 104 Blood Pressure Position Pulse Oximetry 95 94 93 Oxygen Delivery Method Room Air Room Air Room Air Sepsis Recent Fever Within 48 Hours Sepsis New/Unexplained Change in Mental Status Sepsis Action Taken by Nursing 08/29/19 21:10 08/29/19 21:15 08/29/19 21:20 Temperature Temperature Source Pulse Rate 110 H 107 H 111 H Pulse Rate from SpO2 Sensor 110 H 108 H 111 H Pulse Rhythm Pulse Strength Respiratory Rate 15 9 L 14 Respiratory Effort / Characteristics Respiratory Depth Respiratory Pattern Blood Pressure 158/104 H Blood Pressure Mean 115 Blood Pressure Position Pulse Oximetry 94 92 94 Oxygen Delivery Method Room Air Room Air Room Air Sepsis Recent Fever Within 48 Hours Sepsis New/Unexplained Change in Mental Status Sepsis Action Taken by Nursing 08/29/19 21:30 08/29/19 21:45 08/29/19 22:00 Temperature Temperature Source Pulse Rate 101 H 102 H 102 H Pulse Rate from SpO2 Sensor 100 H 102 H 102 H Pulse Rhythm Pulse Strength Respiratory Rate 9 L 12 13 Respiratory Effort / Characteristics Respiratory Depth Respiratory Pattern Blood Pressure 126/90 130/87 135/83 Blood Pressure Mean 99 98 92 Blood Pressure Position Pulse Oximetry 94 95 93 Oxygen Delivery Method Sepsis Recent Fever Within 48 Hours Sepsis New/Unexplained Change in Mental Status Sepsis Action Taken by Nursing 08/29/19 22:01 08/29/19 22:15 08/29/19 22:30 Temperature Temperature Source Pulse Rate 101 H 99 H 102 H Pulse Rate from SpO2 Sensor 100 H 100 H 99 H Pulse Rhythm Pulse Strength Respiratory Rate 15 15 9 L Respiratory Effort / Characteristics Respiratory Depth Respiratory Pattern Blood Pressure 137/90 158/115 H Blood Pressure Mean 104 137 Blood Pressure Position Pulse Oximetry 93 96 96 Oxygen Delivery Method Sepsis Recent Fever Within 48 Hours Sepsis New/Unexplained Change in Mental Status Sepsis Action Taken by Nursing 08/29/19 22:45 08/29/19 23:00 Temperature Temperature Source Pulse Rate 99 H 97 H Pulse Rate from SpO2 Sensor 100 H Pulse Rhythm Pulse Strength Respiratory Rate 11 L 18 Respiratory Effort / Characteristics Respiratory Depth Respiratory Pattern Blood Pressure 124/85 140/83 Blood Pressure Mean 91 95 Blood Pressure Position Pulse Oximetry 94 Oxygen Delivery Method Sepsis Recent Fever Within 48 Hours Sepsis New/Unexplained Change in Mental Status Sepsis Action Taken by Nursing Laboratory Data Result diagrams: 08/29/19 18:47 08/29/19 18:47 Lab Results 08/29/19 08/29/19 08/29/19 Range/Units 18:47 18:47 18:47 WBC 14.55 H (4.8-10.8) K/uL RBC 4.46 L (4.7-6.1) M/uL Hgb 14.0 (14.0-18.0) g/dL Hct 38.4 L (42-52) % MCV 86.1 (80-100) fL MCH 31.4 (25-34) pg MCHC 36.5 H (32-36) g/dL RDW Std Deviation 39.9 (36.4-46.3) fL RDW Coeff of Drake 12.7 (11.5-14.5) % Plt Count 326 (130-400) K/uL MPV 9.7 (7.4-10.4) fL Immature Gran % (Auto) 0.2 % Neut % (Auto) 79.6 % Lymph % (Auto) 10.0 % Brown % (Auto) 8.0 % Eos % (Auto) 2.1 % Baso % (Auto) 0.1 % Neut # (Auto) 11.58 H (1.4-6.5) K/uL Lymph # (Auto) 1.45 (1.2-3.4) K/uL Brown # (Auto) 1.16 H (0.11-0.59) K/uL Eos # (Auto) 0.31 (0-0.5) K/uL Baso # (Auto) 0.02 (0-0.2) K/uL Immature Gran # (Auto) 0.03 H (0.00-0.02) K/uL PT 10.1 (9.0-12.0) Seconds INR 1.0 (0.9-1.1) APTT 25.4 (21.0-31.0) Seconds PTT Ratio 0.9 Sodium 136 (136-145) mmol/L Potassium 3.9 (3.5-5.1) mmol/L Chloride 104 (98-107) mmol/L Carbon Dioxide 24 (21-32) mmol/L Anion Gap 8.0 (3-11) BUN 14 (7-18) mg/dl Creatinine 1.20 (0.6-1.4) mg/dl Est Cr Clr Drug Dosing 65.1 ml/min Est GFR ( Amer) 73.6 Est GFR (Non-Af Amer) 63.5 BUN/Creatinine Ratio 11.4 (10-20) Glucose 235 H (70-99) mg/dl Lactate (0.4-2.0) mmol/L Calcium 9.2 (8.5-10.1) mg/dl Magnesium 1.9 (1.8-2.4) mg/dl Total Bilirubin 0.9 (0.2-1) mg/dl AST 18 (15-37) U/L ALT 48 (12-78) U/L Alkaline Phosphatase 107 (45-117) U/L Troponin I < 0.015 (0-0.045) ng/ml Total Protein 7.5 (6.4-8.2) gm/dl Albumin 3.6 (3.4-5.0) gm/dl Globulin 3.9 (2.5-4.0) gm/dl Albumin/Globulin Ratio 0.9 (0.9-2) /24/20 Range/Units 18:47 WBC (4.8-10.8) K/uL RBC (4.7-6.1) M/uL Hgb (14.0-18.0) g/dL Hct (42-52) % MCV (80-100) fL MCH (25-34) pg MCHC (32-36) g/dL RDW Std Deviation (36.4-46.3) fL RDW Coeff of Drake (11.5-14.5) % Plt Count (130-400) K/uL MPV (7.4-10.4) fL Immature Gran % (Auto) % Neut % (Auto) % Lymph % (Auto) % Brown % (Auto) % Eos % (Auto) % Baso % (Auto) % Neut # (Auto) (1.4-6.5) K/uL Lymph # (Auto) (1.2-3.4) K/uL Brown # (Auto) (0.11-0.59) K/uL Eos # (Auto) (0-0.5) K/uL Baso # (Auto) (0-0.2) K/uL Immature Gran # (Auto) (0.00-0.02) K/uL PT (9.0-12.0) Seconds INR (0.9-1.1) APTT (21.0-31.0) Seconds PTT Ratio Sodium (136-145) mmol/L Potassium (3.5-5.1) mmol/L Chloride (98-107) mmol/L Carbon Dioxide (21-32) mmol/L Anion Gap (3-11) BUN (7-18) mg/dl Creatinine (0.6-1.4) mg/dl Est Cr Clr Drug Dosing ml/min Est GFR ( Amer) Est GFR (Non-Af Amer) BUN/Creatinine Ratio (10-20) Glucose (70-99) mg/dl Lactate 1.4 (0.4-2.0) mmol/L Calcium (8.5-10.1) mg/dl Magnesium (1.8-2.4) mg/dl Total Bilirubin (0.2-1) mg/dl AST (15-37) U/L ALT (12-78) U/L Alkaline Phosphatase (45-117) U/L Troponin I (0-0.045) ng/ml Total Protein (6.4-8.2) gm/dl Albumin (3.4-5.0) gm/dl Globulin (2.5-4.0) gm/dl Albumin/Globulin Ratio (0.9-2) Administered Medications Discontinued Medications Acetaminophen (Ofirmev) 1,000 mg IV NOW STA Stop: 08/29/19 19:33 Last Admin: 08/29/19 19:41 Dose: 1,000 mg Documented by: [id number] Hydromorphone HCl (Dilaudid) 0.5 mg IV Q15M PRN PRN Reason: Pain Stop: 09/12/19 19:32 Last Admin: 08/29/19 22:40 Dose: 0.5 mg Documented by: [id number] Admin: 08/29/19 19:38 Dose: 0.5 mg Documented by: [id number] Sodium Chloride (Nss 1000ml) 1,000 mls @ 999 mls/hr IV .Q1H1M MARLINE Stop: 08/29/19 20:44 Last Infusion: 08/29/19 22:11 Dose: 0 mls/hr Documented by: [id number] Admin: 08/29/19 20:38 Dose: 999 mls/hr Documented by: [id number] Sodium Chloride (Nss 1000ml) 1,000 mls @ 999 mls/hr IV .Q1H1M MARLINE Stop: 08/29/19 19:45 Last Infusion: 08/29/19 20:41 Dose: 0 mls/hr Documented by: [id number] Admin: 08/29/19 19:39 Dose: 999 mls/hr Documented by: [id number] Sodium Chloride (Nss 1000ml) 700 mls @ 999 mls/hr IV .Q43M MARLINE Stop: 08/29/19 21:44 Last Admin: 08/30/19 00:15 Dose: Not Given Documented by: [id number] Admin: 08/30/19 00:15 Dose: Not Given Documented by: [id number] Cefepime HCl (Maxipime) 2,000 mg in 20 mls @ 5 mls/min IV NOW STA; Protocol Stop: 08/29/19 18:48 Last Admin: 08/29/19 20:36 Dose: 5 mls/min Documented by: [id number] Daptomycin 375 mg/ Syringe 7.5 mls @ 3.75 mls/min IV NOW ONE; Protocol Stop: 08/29/19 18:46 Last Admin: 08/29/19 21:23 Dose: 3.75 mls/min Documented by: [id number] Sodium Chloride (Nss) 500 mls @ 500 mls/hr IV .Q1H MARLINE Stop: 08/30/19 00:29 Last Admin: 08/30/19 00:42 Dose: 500 mls/hr Documented by: [id number] Lidocaine HCl (Buffered Lidocaine 1%) 20 ml INFIL NOW ONE Stop: 08/29/19 19:18 Last Admin: 08/29/19 19:39 Dose: 20 ml Documented by: [id number] Ondansetron HCl (Zofran) 4 mg IV NOW STA Stop: 08/29/19 19:34 Last Admin: 08/29/19 19:38 Dose: 4 mg Documented by: [id number] Discharge Plan Visit Data *Final* Discharge Date/Time: 08/29/19 23:46 Chief Complaint: Neck Injury/Pain Stated Complaint: SWOLLEN NECK ED Provider: Brandon Ventura Discharge Problem: Sepsis, Deep postoperative wound infection Patient Disposition: Admitted As Inpatient Discharge Instructions Interventions: ED Discharge Assessment Last Done: 08/29/19 23:46
[2019-08-29 19:00] LABS: Basophils # (auto) 0.02 K/uL (0-0.2); Basophils % (auto) 0.1 %; Eosinophils # (auto) 0.31 K/uL (0-0.5); Eosinophils % (auto) 2.1 %; Hematocrit (blood only) 38.4 % (42-52); Immature Granulocytes # (auto) 0.03 K/uL (0.00-0.02); Immature Granulocytes % (auto) 0.2 %; Lymphocytes # (auto) 1.45 K/uL (1.2-3.4); Mean Corpuscular Hemoglobin 31.4 pg (25-34); Mean Corpuscular Hgb Conc 36.5 g/dL (32-36); Mean Corpuscular Volume 86.1 fL (80-100); Mean Platelet Volume 9.7 fL (7.4-10.4); Monocytes # (auto) 1.16 K/uL (0.11-0.59); Neutrophils # (auto) 11.58 K/uL (1.4-6.5); Neutrophils % (auto) 79.6 %; Platelet Count 326 K/uL (130-400); RDW Coefficient of Variation 12.7 % (11.5-14.5); RDW Standard Deviation 39.9 fL (36.4-46.3); Red Blood Count 4.46 M/uL (4.7-6.1); White Blood Count 14.55 K/uL (4.8-10.8)
[2019-08-29 19:13] LABS: Alanine Aminotransferase 48 U/L (12-78); Albumin Level 3.6 gm/dl (3.4-5.0); Aspartate Aminotransferase 18 U/L (15-37); BUN Creatinine Ratio 11.4 (10-20); Blood Urea Nitrogen 14 mg/dl (7-18); Calcium 9.2 mg/dl (8.5-10.1); Carbon Dioxide 24 mmol/L (21-32); Chloride 104 mmol/L (98-107); Creatinine Clr Calc Pharmacy 65.1 ml/min; Est GFR (African American) 73.6; Est GFR (Non-African American) 63.5; Glucose 235 mg/dl (70-99); Magnesium 1.9 mg/dl (1.8-2.4); Potassium 3.9 mmol/L (3.5-5.1); Sodium 136 mmol/L (136-145)
[2019-08-29 19:14] LABS: Partial Thromboplastin Ratio 0.9; Partial Thromboplastin Time 25.4 Seconds (21.0-31.0); Prothrombin Time 10.1 Seconds (9.0-12.0)
[2019-08-29] MEDS ORDERED: XYLOCAINE 1%/SOD BICARB 20 ML VIAL INFIL ONE (19:17)
[2019-08-29 19:18] LABS: Albumin Globulin Ratio 0.9 (0.9-2); Alkaline Phosphatase 107 U/L (45-117); Bilirubin,Total 0.9 mg/dl (0.2-1); Globulin 3.9 gm/dl (2.5-4.0); Total Protein 7.5 gm/dl (6.4-8.2); Troponin I < 0.015 ng/ml (0-0.045)
[2019-08-29] MEDS ORDERED: ACETAMINOPHEN 1000 MG/100 ML IV IV STA (19:32)
[2019-08-29] MEDS ORDERED: ONDANSETRON INJ 2 MG/ML 2 ML VIAL IV STA (19:33)
[2019-08-29] MEDS: HYDROmorphone INJ 0.5 MG/0.5 ML SYR IV PRN ×2 (19:38→22:40)
--- NOTE | 2019-08-29 19:48 | ENT Consultation ---
Date of Consultation August 29, 2019 Assessment & Plan (1) Seroma after procedure: Incision and drainage was done with packing with iodoform. Due to his fever and elevated white count he will be admitted for IV antibiotics. History of Present Illness Reason for Consultation: Neck swelling History of Present Illness 64-year-old male who underwent right thyroid lobectomy 2 weeks ago by me developed swelling yesterday it became worse today and in the ER was found to have a 15 cc seroma which was drained by me and then packed with iodoform gauze. He is being admitted for IV antibiotics Allergies Allergy/AdvReac Type Severity Reaction Status Date / Time Dscltzm-Dif-Dky Reductase AdvReac Unknown MUSCLE Verified 08/15/19 06:24 Inhibitor ACHES Home Medications Home Medications Medication Instructions Recorded Confirmed Type Lantus U-100 Insulin 18 unit SUBCUT BID 08/11/19 08/15/19 History Victoza 2-Marc 1.8 mg SUBCUT QAM 08/11/19 08/15/19 History aspirin 81 mg PO QAM 08/11/19 08/15/19 History atorvastatin 40 mg PO HS 08/11/19 08/15/19 History diclofenac sodium 75 mg PO BID 08/11/19 08/15/19 History lisinopril 10 mg PO HS 08/11/19 08/15/19 History metformin 1,000 mg PO BID 08/11/19 08/15/19 History multivitamin 1 cap PO QAM 08/11/19 08/15/19 History tramadol 50 mg PO Q6H PRN #40 tab 08/16/19 Rx Patient History Medical History Depression (Chronic) Diabetes mellitus, type II (Chronic) Dyslipidemia (Chronic) GERD (gastroesophageal reflux disease) (Chronic) H/O pericarditis (Resolved) about 2 years ago follow with Dr. Smith at [facility] Hypertension Spinal stenosis (Chronic) Thyroid nodule Surgical History History of appendectomy (Resolved) History of arthroscopic procedure on shoulder (Resolved) "R shoulder" Hx of arthroscopy of left knee Status post lumbar spinal fusion (Resolved) x 2 Social History Smoking Status: Never smoker Tobacco Type: Smokeless Tobacco (Dip or Chew) Second Hand Exposure: No; Hx Alcohol Use: No Hx Substance Use: No Preferred Language: Syriac Communication Ability: Effective Car Salesman Required: No Beliefs That Will Affect Care: None Current Living Situation: Significant Other Feels Safe at Home: Yes Physical Exam Constitutional: WD/WN, vitals as above Eyes: PERRL, conjunctivae normal, anicteric sclerae ENMT: external ear and nose normal, oropharynx normal Neck: 4 x 8 cm fluctuant swelling slightly to the right of midline Respiratory: normal respiratory effort, lungs clear to auscultation Cardiovascular: RRR, no murmur, no edema Results & Data ([facility]) Vital Signs (Past 12 Hours) Vital Signs Temp Pulse Resp BP Pulse Ox 08/29/19 18:25 37.8 C H 138 H 18 123/76 97
--- NOTE | 2019-08-29 19:52 | Operative Report ---
Post Operative Report Pre & Post Diagnosis Seroma right neck I identified the patient and participated in the time-out.: Yes Procedure Incision and drainage of seroma Surgeon Tash Hansen MD [employer] Assessment Specialist None Estimated Blood Loss 5 Findings Consistent with Post-Op Diagnosis Specimens Culture of seroma Anesthesia Type Local Complications none Indications 64-year-old gentleman who underwent thyroid lobectomy by me 2 weeks ago developed a centimeter fluctuant swelling on the right side of the neck Description of Procedure The patient was in the supine position in the emergency room. The neck was initially aspirated finding seroma. The old incision line was prepped with Betadine paint and then incised using a #11 blade. The hemostat was used to open up the seroma cavity. Another 5 cc of seroma was expressed totaling 15 cc. Iodoform packing was placed in the depth of the wound. Light dressing was placed. He he tolerated procedure well and will be admitted for IV antibiotics. I attest to the content of the Intraoperative Record and any orders documented therein. Any exceptions are noted below.
--- NOTE | 2019-08-29 20:07 | XRay Report ---
SINGLE VIEW CHEST CLINICAL HISTORY: Sepsis. FINDINGS: An AP, portable, upright chest radiograph is compared to study dated 06/14/2017. The examina tion is degraded by portable technique and apical lordotic positioning. The cardiomediastinal silhoue tte is unremarkable. The lungs and pleural spaces are clear. No pneumothorax is seen. The bony thorax is grossly intact. IMPRESSION: No active disease in the chest. ACT 112: Negative or not required by law. Electronically signed by: Damien Atkins M.D. 08/29/2019 8:06 PM
[2019-08-30] MEDS ORDERED: ACETAMINOPHEN 325 MG TAB PO PRN (00:14)
[2019-08-30] MEDS ORDERED: POLYETHYLENE (MIRALAX) 17 GM PACK PO PRN (00:14)
[2019-08-30] MEDS ORDERED: NICOTINE POLACRILEX 2 MG GUM MT PRN (00:14)
[2019-08-30] MEDS ORDERED: ONDANSETRON INJ 2 MG/ML 2 ML VIAL IV PRN (00:14)
[2019-08-30] MEDS ORDERED: PIPERACILL/TAZOBAC CONSULT ACTIVE PRN (00:14)
[2019-08-30] MEDS: SODIUM CHLORIDE 0.9% 1000ML 700 ML IV SCH (00:15)
[2019-08-30] MEDS: SODIUM CHLORIDE 0.9% 500 ML IV SCH ×2 (00:16→00:42)
[2019-08-30] MEDS ORDERED: GLUCOSE 40% GEL 15 GM TUBE PO PRN (01:15)
[2019-08-30] MEDS ORDERED: CARBOHYDRATES FOR HYPOGLYCEMIA PO PRN (01:15)
[2019-08-30] MEDS ORDERED: GLUCAGON FOR INJ 1 MG VIAL SQ PRN (01:15)
[2019-08-30] MEDS ORDERED: GLUCOSE 10 TABS/TUBE PO PRN (01:15)
[2019-08-30] MEDS ORDERED: DEXTROSE 50% 50 ML SYRINGE IV PRN (01:15)
--- NOTE | 2019-08-30 01:15 | History and Physical Report ---
DATE OF ADMISSION: 08/29/2019 CHIEF COMPLAINT: Infection of the thyroidectomy site. HISTORY OF PRESENT ILLNESS: This is a 64-year-old male with past medical history significant for type 2 diabetes, goiter, hyperlipidemia, chronic rhinitis, GERD, history of pericarditis, mild depression, hypertension, who is status post right thyroid lobectomy 2 weeks ago and he also had followup with ENT and sutures were taken out, but last 2 days he has noted neck swelling, having a lot of pain, so came to the ER, seen by ENT and incision and drainage was done with evacuating the seroma and packing with iodoform. Currently resting comfortably and hemodynamically stable. When he came to the ER, he had a mild temp spike and tachycardic. White count was 14.5. Lactate was 1.4. Rest of the labs were okay. The patient says after surgery he initially had difficulty swallowing, but he is swallowing okay, but the last few days, he had some nausea, but is able to keep his food down. Denies any shortness of breath. Has some mild headache. No dizziness. Somewhat hard of hearing. No earache, no runny nose. He has some sore throat. No cough, no chest pain. Normal bowel and bladder movements. No rash seen. Ambulates okay. ALLERGIES: STATINS, HMG-COA REDUCTASE INHIBITORS. PAST MEDICAL HISTORY: As mentioned above. PAST SURGICAL HISTORY: Recent right thyroid lobectomy, left ankle arthroscopy and debridement, colonoscopy, cystoscopy, lumbosacral injection, lumbar hemilaminectomy, right shoulder arthroscopy, left elbow surgery, back surgery, appendectomy, removal of lumbar spine lamina. MEDICATIONS: Currently, the patient is on aspirin 81 mg p.o. daily, atorvastatin 40 mg at bedtime, diclofenac sodium 75 mg p.o. b.i.d., Lantus 18 subcutaneous b.i.d., lisinopril 10 mg at bedtime, metformin 1000 mg p.o. b.i.d., methocarbamol 500 mg p.o. b.i.d., multivitamin 1 capsule daily in a.m., nicotine 2 mg buccal q.i.d. p.r.n., MiraLax 17 grams p.o. daily p.r.n., Victoza 1.8 mg subcutaneous a.m. FAMILY HISTORY: Significant for mother had cervical cancer and thyroid disorder; father had heart pacemaker; sister had depression. SOCIAL HISTORY: Former smoker, smoked 1 pack a day for 10 years, quit in 2016. Alcohol rarely. No drug use. REVIEW OF SYSTEMS: As per HPI. Rest of the review of systems negative. PHYSICAL EXAMINATION: GENERAL: The patient is of moderate build, not in acute distress. VITAL SIGNS: Temperature T-max 37.8, pulse 99, respiratory rate 15, blood pressure 124/85, oxygen 94% on room air. HEENT: The pupils are equal, round, and reactive to light. NECK: Right thyroid lobectomy site is mildly erythematous and status post I and D, dressing seen. CARDIOVASCULAR: S1, S2 heard. Tachycardia. No murmurs. RESPIRATORY SYSTEM: Normal AP diameter. No accessory muscle use. No wheezing, no crackles. ABDOMEN: Soft, bowel sounds present, nontender. No distention. CENTRAL NERVOUS SYSTEM: Cranial nerves II-XII grossly intact. Nonfocal. EXTREMITIES: No edema, no erythema. LABORATORY DATA: WBC 14.5, hemoglobin 14, hematocrit 38.4, platelets 326. PT 10.1, INR 1, APTT 25.4. Sodium 136, potassium 3.9, chloride 104, bicarbonate 24, BUN 14, creatinine 1.2, serum glucose 235, lactate 1.4, calcium 9.2, magnesium 1.9, total bilirubin 0.9, AST 18, ALT 48, alkaline phosphatase 107. Troponin I less than 0.015. IMAGING DATA: Chest x-ray: No acute disease in the chest. EKG: Sinus tachycardia at a rate of 120, nonspecific ST abnormality in the inferior leads. ASSESSMENT AND PLAN: This is a 64-year-old male who presents with infection of the recent thyroidectomy site. 1. Infection of the recent thyroidectomy site with seroma, status post drainage and early sepsis with tachycardia, temperature spike, and leukocytosis. Lactate is normal at 1.4. With the fluids, tachycardia improved. We will admit to medical floor. We will give 500 ml of normal saline bolus and continue with IV normal saline 125 mL per hour. Continue with IV daptomycin and IV Zosyn. Follow the cultures. Follow the response. ENT on board. 2. Diabetes. Continue home Lantus. Hold his metformin. We will place on sliding scale. Follow the blood sugars. Follow the HbA1c level. 3. Hypertension. Continue his lisinopril. Monitor blood pressure. 4. Hyperlipidemia, on statin. 5. Deep venous thrombosis prophylaxis, sequential compression devices. DISPOSITION: Closely monitor in the medical floor. Level 1 full code. MTDD
[2019-08-30] MEDS ORDERED: PIPERACILLIN/TAZOBACTAM 3.375 GM in DEXTROSE 5% 100 ML IV ONE (01:30)
[2019-08-30] MEDS: SODIUM CHLORIDE 0.9% 1000ML 1,000 ML IV SCH ×3 (01:43→16:19)
[2019-08-30] MEDS: HYDROmorphone INJ 0.5 MG/0.5 ML SYR IV PRN ×3 (02:49→11:11)
[2019-08-30 02:59] LABS: Appearance Urine Clear (Clear); Bilirubin Urine Negative (Negative); Blood Urine Negative (Negative); Color Urine Yellow; Glucose Urine UA Negative (Negative); Ketones Urine Negative (Negative); Leukocyte Esterase Urine Negative (Negative); Nitrite Urine Negative (Negative); Protein Urine Negative (Negative); Specific Gravity Urine 1.011 (1.000-1.030); Urobilinogen Urine Negative (Negative)
[2019-08-30] MEDS: PIPERACILLIN/TAZOBACTAM 3.375 GM in DEXTROSE 5% 100 ML IV SCH ×3 (05:27→21:40)
[2019-08-30 05:57] LABS: Basophils # (auto) 0.02 K/uL (0-0.2); Basophils % (auto) 0.2 %; Eosinophils # (auto) 0.24 K/uL (0-0.5); Eosinophils % (auto) 2.1 %; Hematocrit (blood only) 33.4 % (42-52); Hemoglobin 11.9 g/dL (14.0-18.0); Immature Granulocytes # (auto) 0.03 K/uL (0.00-0.02); Immature Granulocytes % (auto) 0.3 %; Lymphocytes # (auto) 1.69 K/uL (1.2-3.4); Lymphocytes % (auto) 14.7 %; Mean Corpuscular Hemoglobin 31.4 pg (25-34); Mean Corpuscular Hgb Conc 35.6 g/dL (32-36); Mean Corpuscular Volume 88.1 fL (80-100); Mean Platelet Volume 9.6 fL (7.4-10.4); Monocytes # (auto) 1.22 K/uL (0.11-0.59); Monocytes % (auto) 10.6 %; Neutrophils # (auto) 8.28 K/uL (1.4-6.5); Neutrophils % (auto) 72.1 %; Platelet Count 258 K/uL (130-400); RDW Coefficient of Variation 13.1 % (11.5-14.5); Red Blood Count 3.79 M/uL (4.7-6.1); White Blood Count 11.48 K/uL (4.8-10.8)
[2019-08-30 06:15] LABS: Estimated Average Glucose 163 mg/dl; Hemoglobin A1C 7.3 % (4.5-5.6)
[2019-08-30 06:33] LABS: Calcium 7.8 mg/dl (8.5-10.1); Creatinine Clr Calc Pharmacy 78.2 ml/min; Est GFR (African American) 90.7; Est GFR (Non-African American) 78.2; Magnesium 1.8 mg/dl (1.8-2.4); Potassium 3.9 mmol/L (3.5-5.1)
[2019-08-30] MEDS: ASPIRIN 81 MG ECTAB PO SCH (08:19)
[2019-08-30] MEDS: DICLOFENAC SODIUM 75 MG TABCR PO SCH ×2 (08:20→20:27)
[2019-08-30] MEDS: INSULIN GLARGINE SOLOSTAR 100 UNITS/ML 3 ML PEN SC SCH ×2 (08:20→20:32)
[2019-08-30] MEDS: METHOCARBAMOL 500 MG TABLET PO SCH ×2 (08:20→20:27)
[2019-08-30] MEDS: MULTIVITAMIN TAB PO SCH (08:20)
[2019-08-30] MEDS: INSULIN ASPART 100 UNITS/ML 3 ML PEN SC SCH ×4 (08:21→20:33)
--- NOTE | 2019-08-30 11:30 | Surgery Progress Note ---
Date of Service August 30, 2019 Assessment & Plan (1) Seroma after procedure: No reaccumulation with iodoform drain in place (2) Sepsis: Gram stain showed many polys but no bacteria cultures pending Subjective Neck is still painful Physical Exam Constitutional: WD/WN, vitals as above Neck: Dressing was changed this morning with minimal drainage on the Band-Aid with iodoform packing in place and the wound open Results & Data Vital Signs (Past 12 Hours) Vital Signs Temp Pulse Pulse Resp BP BP Pulse Ox 08/30/19 07:15 36.7 C 91 H 16 111/70 97 08/30/19 00:10 36.6 C 88 16 124/83 97 08/29/19 23:31 94 H 17 96 08/29/19 23:30 95 H 126/84 97
[2019-08-30] MEDS: HYDROCODONE/ACETAMINOPHEN 10/325 TAB PO PRN ×2 (13:29→20:27)
--- NOTE | 2019-08-30 15:53 | Hospitalist Progress Note ---
Date of Service August 30, 2019 Assessment & Plan (1) Deep postoperative wound infection: Early sepsis as per creatinine with leukocytosis, tachycardia and temperature high-temperature Status post right thyroid lobectomy about 2 weeks back Presented with lower anterior neck swelling with increased tenderness and redness Blood cultures have been taken and the patient is on intravenous Dapto and Zosyn Appreciate ENT input and recommendation Status post incision and drainages. Wound culture showed staph in the deep wound We will await sensitivity and continue Dapto and Zosyn for now (2) Seroma after procedure: As above (3) Thyroid nodule: History of thyroidectomy for right thyroid nodule about 2 weeks back (4) Diabetes mellitus, type II: We will hold oral hypoglycemic agent SSI (5) Depression: No acute delirium Continue current medications DVT prophylaxis SCDs for now Admission and Anticipated Discharge Date Admission Date: August 29, 2019 Subjective The patient was seen and examined in medical floor He was admitted with surgical site infection status post thyroidectomy Complains of swelling and pain involving anterior lower neck and adjoining area Denies any shortness of breath, any fever and/or chills Review of Systems Review of Systems: All systems reviewed and are unremarkable except as noted below Ear, Nose, Mouth, Throat: + problem reported (Swelling involving the anterior lower neck and adjoining areas) Physical Exam Physical Exam: Lying in bed comfortably Constitutional: well developed, well nourished, + acute distress (Neck pain and swelling), + ill appearing and + obese Eyes: PERRL, conjunctivae normal, anicteric sclerae ENMT: external ear and nose normal, oropharynx normal Neck: trachea midline, no thyromegaly (Thyroid swelling and redness involving adjoining areas, status post thyroidectomy) Thyroid: + abnormal thyroid Respiratory: normal respiratory effort; no respiratory distress Auscul tation: lungs clear to auscultation bilaterally Cardiovascular: Rate/Rhythm: regular rate and regular rhythm Heart Sounds: no murmur Gastrointestinal (Abdomen): Inspection/Auscultation: abdomen normal to inspection; abdomen not distended Percussion/Palpation: abdomen soft; abdomen nontender Musculoskeletal: No acute arthritis involving any joints Neurologic: moves all extremities; no focal motor deficits Alert, awake and oriented x3 Results & Data Results & Data ([facility]) Vital Signs (Past 12 Hours) Vital Signs Temp Pulse Resp BP Pulse Ox 08/30/19 15:20 36.7 C 100 H 18 115/77 95 08/30/19 07:15 36.7 C 91 H 16 111/70 97 Laboratory Results Short CBC 08/29/19 08/30/19 Range/Units 18:47 05:03 WBC 14.55 H 11.48 H (4.8-10.8) K/uL Hgb 14.0 11.9 L (14.0-18.0) g/dL Hct 38.4 L 33.4 L (42-52) % Plt Count 326 258 (130-400) K/uL BMP 08/29/19 08/30/19 18:47 05:03 Sodium 136 141 Potassium 3.9 3.9 Chloride 104 111 H Carbon Dioxide 24 25 BUN 14 10 Creatinine 1.20 1.01 Glucose 235 H 119 H Calcium 9.2 7.8 L D Cardiac Enzymes 08/29/19 Range/Units 18:47 Troponin I < 0.015 (0-0.045) ng/ml Liver Function 08/29/19 Range/Units 18:47 Total Bilirubin 0.9 (0.2-1) mg/dl AST 18 (15-37) U/L ALT 48 (12-78) U/L Alkaline Phosphatase 107 (45-117) U/L Albumin 3.6 (3.4-5.0) gm/dl Urine 08/30/19 Range/Units 02:40 Urine Color Yellow Urine Appearance Clear (Clear) Urine pH 5.0 (4.5-7.5) Ur Specific [place] 1.011 (1.000-1.030) Urine Protein Negative (Negative) Urine Glucose (UA) Negative (Negative) Medications Administered Current Inpatient Medications Acetaminophen (Tylenol) 650 mg PO Q4H PRN PRN Reason: pain/fever Stop: 09/29/19 00:13 Hydrocodone Bitart/Acetaminophen ([place] 10/325) 1 tab PO Q4HWA PRN PRN Reason: Pain Stop: 09/13/19 11:29 Last Admin: 08/30/19 13:29 Dose: 1 tab Documented by: Aspirin (Ecotrin Ectab) 81 mg PO QA [facility] Stop: 09/29/19 08:59 Last Admin: 08/30/19 08:19 Dose: 81 mg Documented by: Atorvastatin Calcium (Lipitor) 40 mg PO HS [facility] Stop: 08/24/20 20:59 Dextrose (Dextrose 50%) 25 - 50 ml IV UD PRN; Protocol PRN Reason: Hypoglycemia Protocol Stop: 09/29/19 01:14 Diclofenac Sodium (Voltaren) 75 mg PO BID [facility] Stop: 09/29/19 08:59 Last Admin: 08/30/19 08:20 Dose: 75 mg Documented by: Glucagon (Glucagen) 1 mg SQ UD PRN; Protocol PRN Reason: Hypoglycemia Protocol Stop: 09/29/19 01:14 Glucose (Glucose 40%) 15 - 30 gm PO UD PRN; Protocol PRN Reason: Hypoglycemia Protocol Stop: 09/29/19 01:14 Glucose (Dex4 Glucose) 4 - 8 tabs PO UD PRN; Protocol PRN Reason: Hypoglycemia Protocol Stop: 09/29/19 01:14 Hydromorphone HCl (Dilaudid) 0.5 mg IV Q3H PRN PRN Reason: Pain Stop: 09/13/19 00:13 Last Admin: 08/30/19 11:11 Dose: 0.5 mg Documented by: Sodium Chloride (Nss 1000ml) 1,000 mls @ 125 mls/hr IV .Q8H [facility] Stop: 09/29/19 00:13 Last Infusion: 08/30/19 13:51 Dose: 125 mls/hr Documented by: Piperacillin Sod/Tazobactam (Sod 3.375 gm/ Dextrose) 115 mls @ 28.75 mls/hr IV Q8H [facility]; Protocol Stop: 09/06/19 05:59 Last Infusion: 08/30/19 13:51 Dose: 28.8 mls/hr Documented by: Daptomycin 250 mg/ Syringe 5 mls @ 2.5 mls/min IV Q24H [facility]; Protocol Stop: 09/04/19 21:01 Insulin Aspart (Novolog Flexpen) 0 units SC ACHS [facility] Stop: 09/29/19 07:29 Last Admin: 08/30/19 12:21 Dose: 5 units Documented by: Insulin Glargine (Lantus Solostar Pen) 18 units SC BID [facility] Stop: 09/29/19 08:59 Last Admin: 08/30/19 08:20 Dose: 18 units Documented by: Lisinopril (Zestril) 10 mg PO HS [facility] Stop: 09/29/19 20:59 Methocarbamol (Robaxin) 500 mg PO BID [facility] Stop: 09/29/19 08:59 Last Admin: 08/30/19 08:20 Dose: 500 mg Documented by: Miscellaneous (Carbohydrates For Hypoglycemia) 15 - 30 gm PO UD PRN PRN Reason: Hypoglycemia Treatment Stop: 09/29/19 01:14 Miscellaneous Information (Consult) 1 ea N/A UD PRN PRN Reason: Consult Stop: 09/28/19 18:44 Miscellaneous Information (Consult) 1 ea N/A UD PRN PRN Reason: Consult Stop: 09/29/19 00:13 Multivitamins (Multivitamin Tab) 1 tab PO QAM [facility] Stop: 09/29/19 08:59 Last Admin: 08/30/19 08:20 Dose: 1 tab Documented by: Nicotine Polacrilex (Nicorette 2mg) 1 piece MT QID PRN PRN Reason: Smoking Cessation Stop: 09/29/19 00:13 Ondansetron HCl (Zofran) 4 mg IV Q6H PRN PRN Reason: Nausea Stop: 09/29/19 00:13 Polyethylene Glycol (Miralax Powder Packet) 17 gm PO DAILY PRN PRN Reason: Constipation Stop: 09/29/19 00:13
[2019-08-30] MEDS: lisinopriL 10 MG TAB PO SCH (20:27)
[2019-08-30] MEDS: DAPTOmycin 250 MG in SYRINGE 0 ML IV SCH (20:27)
[2019-08-30] MEDS ORDERED: ATORVASTATIN 40 MG TAB PO SCH (21:00)
[2019-08-31] MEDS: HYDROCODONE/ACETAMINOPHEN 10/325 TAB PO PRN ×5 (00:26→21:05)
[2019-08-31] MEDS: SODIUM CHLORIDE 0.9% 1000ML 1,000 ML IV SCH ×3 (00:26→16:00)
[2019-08-31] MEDS: PIPERACILLIN/TAZOBACTAM 3.375 GM in DEXTROSE 5% 100 ML IV SCH ×3 (05:08→22:17)
[2019-08-31 05:54] LABS: Basophils # (auto) 0.03 K/uL (0-0.2); Basophils % (auto) 0.3 %; Eosinophils % (auto) 5.3 %; Hematocrit (blood only) 31.3 % (42-52); Hemoglobin 11.2 g/dL (14.0-18.0); Immature Granulocytes # (auto) 0.01 K/uL (0.00-0.02); Immature Granulocytes % (auto) 0.1 %; Lymphocytes # (auto) 2.02 K/uL (1.2-3.4); Lymphocytes % (auto) 21.6 %; Mean Corpuscular Hemoglobin 31.2 pg (25-34); Mean Corpuscular Hgb Conc 35.8 g/dL (32-36); Mean Corpuscular Volume 87.2 fL (80-100); Mean Platelet Volume 9.5 fL (7.4-10.4); Monocytes # (auto) 1.12 K/uL (0.11-0.59); Neutrophils # (auto) 5.67 K/uL (1.4-6.5); Neutrophils % (auto) 60.7 %; Platelet Count 249 K/uL (130-400); RDW Standard Deviation 41.7 fL (36.4-46.3); Red Blood Count 3.59 M/uL (4.7-6.1); White Blood Count 9.35 K/uL (4.8-10.8)
[2019-08-31 06:23] LABS: BUN Creatinine Ratio 7.2 (10-20); Calcium 8.2 mg/dl (8.5-10.1); Creatinine Clr Calc Pharmacy 77.4 ml/min; Est GFR (African American) 89.6; Est GFR (Non-African American) 77.3; Potassium 3.6 mmol/L (3.5-5.1)
[2019-08-31] MEDS: ASPIRIN 81 MG ECTAB PO SCH (08:21)
[2019-08-31] MEDS: METHOCARBAMOL 500 MG TABLET PO SCH ×2 (08:21→21:05)
[2019-08-31] MEDS: DICLOFENAC SODIUM 75 MG TABCR PO SCH ×2 (08:21→21:05)
[2019-08-31] MEDS: MULTIVITAMIN TAB PO SCH (08:21)
[2019-08-31] MEDS: INSULIN GLARGINE SOLOSTAR 100 UNITS/ML 3 ML PEN SC SCH ×2 (08:21→21:06)
[2019-08-31] MEDS: INSULIN ASPART 100 UNITS/ML 3 ML PEN SC SCH ×4 (08:22→21:07)
--- NOTE | 2019-08-31 11:49 | Surgery Progress Note ---
Date of Service August 31, 2019 Assessment & Plan (1) Seroma after procedure: No further accumulation (2) Sepsis: No growth on blood cultures (3) Deep postoperative wound infection: Culture of seroma growing few staphylococci with sensitivities to follow, discussed with Dr. Alvarado, probable discharge tomorrow with follow-up in my office on Sunday or Sunday. Subjective Feeling better less tender Physical Exam Constitutional: WD/WN, vitals as above Neck: trachea midline, no thyromegaly Iodoform advanced slightly. Minimal drainage Results & Data Vital Signs (Past 12 Hours) Vital Signs Temp Pulse Resp BP Pulse Ox 08/31/19 07:02 36.5 C 68 16 119/75 97
--- NOTE | 2019-08-31 15:16 | Hospitalist Progress Note ---
Date of Service August 31, 2019 Assessment & Plan (1) Deep postoperative wound infection: Early sepsis as per creatinine with leukocytosis, tachycardia and temperature high-temperature Status post right thyroid lobectomy about 2 weeks back Presented with lower anterior neck swelling with increased tenderness and redness Blood cultures have been taken and the patient is on intravenous Dapto and Zosyn Appreciate ENT input and recommendation Status post incision and drainages. Wound culture showed staph in the deep wound-sensitivities pending Blood culture is negative so far We will continue current antibiotics Likely to be discharged tomorrow on oral antibiotic depending on the sensitivity (2) Seroma after procedure: As above (3) Thyroid nodule: History of thyroidectomy for right thyroid nodule about 2 weeks back (4) Diabetes mellitus, type II: We will hold oral hypoglycemic agent SSI (5) Depression: No acute delirium Continue current medications DVT prophylaxis SCDs for now Increase ambulation Admission and Anticipated Discharge Date Admission Date: August 29, 2019 Subjective The patient was seen and examined in medical floor He was admitted with surgical site infection status post thyroidectomy Complains of swelling and pain involving anterior lower neck and adjoining area Denies any shortness of breath, any fever and/or chills 08/31/2019 The patient was seen and examined in medical floor He is much better today Denies any significant pain in the throat and has been tolerating regular diet Denies any other symptoms Review of Systems Review of Systems: All systems reviewed and are unremarkable except as noted below Ear, Nose, Mouth, Throat: + problem reported (Swelling involving the anterior lower neck and adjoining areas) Physical Exam Physical Exam: Lying in bed comfortably Constitutional: well developed, well nourished, + acute distress (Neck pain and swelling), + ill appearing and + obese Eyes: PERRL, conjunctivae normal, anicteric sclerae ENMT: external ear and nose normal, oropharynx normal Neck: trachea midline, no thyromegaly (Thyroid swelling and redness involving adjoining areas, status post thyroidectomy) Thyroid: + abnormal thyroid Minimal thyroid swelling, no adjoining redness and tenderness is improved Respiratory: normal respiratory effort; no respiratory distress Auscultation: lungs clear to auscultation bilaterally Cardiovascular: Rate/Rhythm: regular rate and regular rhythm Heart Sounds: no murmur Gastrointestinal (Abdomen): Inspection/Auscultation: abdomen normal to inspection; abdomen not distended Percussion/Palpation: abdomen soft; abdomen nontender Musculoskeletal: No acute arthritis in any joints Neurologic: moves all extremities; no focal motor deficits Results & Data Results & Data ([facility]) Vital Signs (Past 12 Hours) Vital Signs Temp Pulse Resp BP Pulse Ox 08/31/19 07:02 36.5 C 68 16 119/75 97 Laboratory Results Short CBC 08/31/19 Range/Units 05:25 WBC 9.35 (4.8-10.8) K/uL Hgb 11.2 L (14.0-18.0) g/dL Hct 31.3 L (42-52) % Plt Count 249 (130-400) K/uL BMP 08/31/19 05:25 Sodium 141 Potassium 3.6 Chloride 110 H Carbon Dioxide 26 BUN 7 Creatinine 1.02 Glucose 101 H Calcium 8.2 L Medications Administered Current Inpatient Medications Acetaminophen (Tylenol) 650 mg PO Q4H PRN PRN Reason: pain/fever Stop: 09/29/19 00:13 Hydrocodone Bitart/Acetaminophen ([place] 10/325) 1 tab PO Q4HWA PRN PRN Reason: Pain Stop: 09/13/19 11:29 Last Admin: 08/31/19 14:53 Dose: 1 tab Documented by: Aspirin (Ecotrin Ectab) 81 mg PO QAM [facility] Stop: 09/29/19 08:59 Last Admin: 08/31/19 08:21 Dose: 81 mg Documented by: Atorvastatin Calcium (Lipitor) 40 mg PO HS [facility] Stop: 09/29/19 20:59 Dextrose (Dextrose 50%) 25 - 50 ml IV UD PRN; Protocol PRN Reason: Hypoglycemia Protocol Stop: 09/29/19 01:14 Diclofenac Sodium (Voltaren) 75 mg PO BID [facility] Stop: 09/29/19 08:59 Last Admin: 08/31/19 08:21 Dose: 75 mg Documented by: Glucagon (Glucagen) 1 mg SQ UD PRN; Protocol PRN Reason: Hypoglycemia Protocol Stop: 09/29/19 01:14 Glucose (Glucose 40%) 15 - 30 gm PO UD PRN; Protocol PRN Reason: Hypoglycemia Protocol Stop: 09/29/19 01:14 Glucose (Dex4 Glucose) 4 - 8 tabs PO UD PRN; Protocol PRN Reason: Hypoglycemia Protocol Stop: 09/29/19 01:14 Hydromorphone HCl (Dilaudid) 0.5 mg IV Q3H PRN PRN Reason: Pain Stop: 09/13/19 00:13 Last Admin: 08/30/19 11:11 Dose: 0.5 mg Documented by: Sodium Chloride (Nss 1000ml) 1,000 mls @ 125 mls/hr IV .Q8H [facility] Stop: 09/29/19 00:13 Last Infusion: 08/31/19 13:36 Dose: 125 mls/hr Documented by: Piperacillin Sod/Tazobactam (Sod 3.375 gm/ Dextrose) 115 mls @ 28.75 mls/hr IV Q8H [facility]; Protocol Stop: 09/06/19 05:59 Last Admin: 08/31/19 14:09 Dose: 28.8 mls/hr Documented by: Daptomycin 250 mg/ Syringe 5 mls @ 2.5 mls/min IV Q24H [facility]; Protocol Stop: 09/04/19 21:01 Last Admin: 08/30/19 20:27 Dose: 2.5 mls/min Documented by: Insulin Aspart (Novolog Flexpen) 0 units SC ACHS [facility] Stop: 09/29/19 07:29 Last Admin: 08/31/19 12:34 Dose: 7 units Documented by: Insulin Glargine (Lantus Solostar Pen) 18 units SC BID [facility] Stop: 09/29/19 08:59 Last Admin: 08/31/19 08:21 Dose: 18 units Documented by: Lisinopril (Zestril) 10 mg PO HS [facility] Stop: 09/29/19 20:59 Last Admin: 08/30/19 20:27 Dose: 10 mg Documented by: Methocarbamol (Robaxin) 500 mg PO BID [facility] Stop: 09/29/19 08:59 Last Admin: 08/31/19 08:21 Dose: 500 mg Documented by: Miscellaneous (Carbohydrates For Hypoglycemia) 15 - 30 gm PO UD PRN PRN Reason: Hypoglycemia Treatment Stop: 09/29/19 01:14 Miscellaneous Information (Consult) 1 ea N/A UD PRN PRN Reason: Consult Stop: 09/28/19 18:44 Miscellaneous Information (Consult) 1 ea N/A UD PRN PRN Reason: Consult Stop: 09/29/19 00:13 Multivitamins (Multivitamin Tab) 1 tab PO QAM [facility] Stop: 09/29/19 08:59 Last Admin: 08/31/19 08:21 Dose: 1 tab Documented by: Nicotine Polacrilex (Nicorette 2mg) 1 piece MT QID PRN PRN Reason: Smoking Cessation Stop: 09/29/19 00:13 Ondansetron HCl (Zofran) 4 mg IV Q6H PRN PRN Reason: Nausea Stop: 09/29/19 00:13 Polyethylene Glycol (Miralax Powder Packet) 17 gm PO DAILY PRN PRN Reason: Constipation Stop: 09/29/19 00:13
[2019-08-31] MEDS: HYDROmorphone INJ 0.5 MG/0.5 ML SYR IV PRN (18:23)
[2019-08-31] MEDS: lisinopriL 10 MG TAB PO SCH (21:05)
[2019-08-31] MEDS: DAPTOmycin 250 MG in SYRINGE 0 ML IV SCH (21:11)
[2019-09-01] MEDS: SODIUM CHLORIDE 0.9% 1000ML 1,000 ML IV SCH ×2 (00:05→07:50)
[2019-09-01] MEDS: HYDROmorphone INJ 0.5 MG/0.5 ML SYR IV PRN (01:27)
[2019-09-01] MEDS: HYDROCODONE/ACETAMINOPHEN 10/325 TAB PO PRN (05:03)
[2019-09-01] MEDS: PIPERACILLIN/TAZOBACTAM 3.375 GM in DEXTROSE 5% 100 ML IV SCH (05:03)
[2019-09-01 06:05] LABS: Basophils # (auto) 0.04 K/uL (0-0.2); Basophils % (auto) 0.6 %; Eosinophils # (auto) 0.53 K/uL (0-0.5); Eosinophils % (auto) 8.3 %; Hematocrit (blood only) 30.2 % (42-52); Hemoglobin 10.9 g/dL (14.0-18.0); Immature Granulocytes # (auto) 0.01 K/uL (0.00-0.02); Immature Granulocytes % (auto) 0.2 %; Lymphocytes # (auto) 1.58 K/uL (1.2-3.4); Lymphocytes % (auto) 24.8 %; Mean Corpuscular Hemoglobin 31.6 pg (25-34); Mean Corpuscular Hgb Conc 36.1 g/dL (32-36); Mean Corpuscular Volume 87.5 fL (80-100); Mean Platelet Volume 9.3 fL (7.4-10.4); Monocytes # (auto) 0.74 K/uL (0.11-0.59); Monocytes % (auto) 11.6 %; Neutrophils # (auto) 3.48 K/uL (1.4-6.5); Neutrophils % (auto) 54.5 %; Platelet Count 253 K/uL (130-400); RDW Coefficient of Variation 13.1 % (11.5-14.5); RDW Standard Deviation 42.3 fL (36.4-46.3); Red Blood Count 3.45 M/uL (4.7-6.1); White Blood Count 6.38 K/uL (4.8-10.8)
[2019-09-01] MEDS: DICLOFENAC SODIUM 75 MG TABCR PO SCH (08:42)
[2019-09-01] MEDS: ASPIRIN 81 MG ECTAB PO SCH (08:42)
[2019-09-01] MEDS: METHOCARBAMOL 500 MG TABLET PO SCH (08:42)
[2019-09-01] MEDS: MULTIVITAMIN TAB PO SCH (08:42)
[2019-09-01] MEDS: INSULIN GLARGINE SOLOSTAR 100 UNITS/ML 3 ML PEN SC SCH (08:44)
[2019-09-01] MEDS: INSULIN ASPART 100 UNITS/ML 3 ML PEN SC SCH (08:45)
--- NOTE | 2019-09-01 11:25 | Hospitalist Progress Note ---
Date of Service September 01, 2019 Assessment & Plan (1) Deep postoperative wound infection: Early sepsis as per creatinine with leukocytosis, tachycardia and temperature high-temperature Status post right thyroid lobectomy about 2 weeks back Presented with lower anterior neck swelling with increased tenderness and redness Blood cultures have been taken and the patient is on intravenous Dapto and Zosyn Appreciate ENT input and recommendation Status post incision and drainages. Wound culture showed staph in the deep wound-sensitivities pending Blood culture is negative so far We will continue current antibiotics Deep wound culture grew staph aureus and is sensitive to clindamycin Antibiotic changed to clindamycin to continue for next 5 days Discharge home this afternoon Has an appointment with ENT (2) Seroma after procedure: As above (3) Thyroid nodule: History of thyroidectomy for right thyroid nodule about 2 weeks back (4) Diabetes mellitus, type II: We will hold oral hypoglycemic agent SSI (5) Depression: No acute delirium Continue current medications DVT prophylaxis SCDs for now Increase ambulation Admission and Anticipated Discharge Date Admission Date: August 29, 2019 Subjective The patient was seen and examined in medical floor He was admitted with surgical site infection status post thyroidectomy Complains of swelling and pain involving anterior lower neck and adjoining area Denies any shortness of breath, any fever and/or chills 08/31/2019 The patient was seen and examined in medical floor He is much better today Denies any significant pain in the throat and has been tolerating regular diet Denies any other symptoms 09/01/2019 The patient was seen and examined in medical floor He has been feeling a lot better today and wants to go home Denies any pain in the throat or lower leg and the swelling is much improved Review of Systems Review of Systems: All systems reviewed and are unremarkable except as noted below Ear, Nose, Mouth, Throat: + problem reported (Swelling involving the anterior lower neck and adjoining areas) Physical Exam Physical Exam: Lying in bed comfortably Constitutional: well developed, well nourished, + acute distress (Neck pain and swelling), + ill appearing and + obese Eyes: PERRL, conjunctivae normal, anicteric sclerae ENMT: external ear and nose normal, oropharynx normal Neck: trachea midline, no thyromegaly (Thyroid swelling and redness involving adjoining areas, status post thyroidectomy) Thyroid: + abnormal thyroid Swelling in the lower anterior neck adjoining thyroid gland has improved Respiratory: normal respiratory effort; no respiratory distress Auscultation: lungs clear to auscultation bilaterally Cardiovascular: Rate/Rhythm: regular rate and regular rhythm Heart Sounds: no murmur Gastrointestinal (Abdomen): Inspection/Auscultation: abdomen normal to inspection; abdomen not distended Percussion/Palpation: abdomen soft; abdomen nontender Neurologic: moves all extremities; no focal motor deficits Results & Data Results & Data ([facility]) Vital Signs (Past 12 Hours) Vital Signs Temp Pulse Resp BP Pulse Ox 09/01/19 08:00 36.4 C L 62 16 101/59 L 92 Laboratory Results Short CBC 09/01/19 Range/Units 05:48 WBC 6.38 (4.8-10.8) K/uL Hgb 10.9 L (14.0-18.0) g/dL Hct 30.2 L (42-52) % Plt Count 253 (130-400) K/uL Medications Administered Current Inpatient Medications Acetaminophen (Tylenol) 650 mg PO Q4H PRN PRN Reason: pain/fever Stop: 09/29/19 00:13 Hydrocodone Bitart/Acetaminophen ([place] 10/325) 1 tab PO Q4HWA PRN PRN Reason: Pain Stop: 09/13/19 11:29 Last Admin: 09/01/19 05:03 Dose: 1 tab Documented by: Aspirin (Ecotrin Ectab) 81 mg PO QAM MARLINE Stop: 09/29/19 08:59 Last Admin: 09/01/19 08:42 Dose: 81 mg Documented by: Atorvastatin Calcium (Lipitor) 40 mg PO HS MARLINE Stop: 09/29/19 20:59 Clindamycin HCl (Cleocin) 300 mg PO Q6 MARLINE Stop: 09/08/19 11:59 Dextrose (Dextrose 50%) 25 - 50 ml IV UD PRN; Protocol PRN Reason: Hypoglycemia Protocol Stop: 09/29/19 01:14 Diclofenac Sodium (Voltaren) 75 mg PO BID MARLINE Stop: 09/29/19 08:59 Last Admin: 09/01/19 08:42 Dose: 75 mg Documented by: Glucagon (Glucagen) 1 mg SQ UD PRN; Protocol PRN Reason: Hypoglycemia Protocol Stop: 09/29/19 01:14 Glucose (Glucose 40%) 15 - 30 gm PO UD PRN; Protocol PRN Reason: Hypoglycemia Protocol Stop: 09/29/19 01:14 Glucose (Dex4 Glucose) 4 - 8 tabs PO UD PRN; Protocol PRN Reason: Hypoglycemia Protocol Stop: 09/29/19 01:14 Hydromorphone HCl (Dilaudid) 0.5 mg IV Q3H PRN PRN Reason: Pain Stop: 09/13/19 00:13 Last Admin: 09/01/19 01:27 Dose: 0.5 mg Documented by: Insulin Aspart (Novolog Flexpen) 0 units SC ACHS [facility] Stop: 09/29/19 07:29 Last Admin: 09/01/19 08:45 Dose: 7 units Documented by: Insulin Glargine (Lantus Solostar Pen) 18 units SC BID [facility] Stop: 09/29/19 08:59 Last Admin: 09/01/19 08:44 Dose: 18 units Documented by: Lisinopril (Zestril) 10 mg PO HS [facility] Stop: 09/29/19 20:59 Last Admin: 08/31/19 21:05 Dose: 10 mg Documented by: Methocarbamol (Robaxin) 500 mg PO BID [facility] Stop: 09/29/19 08:59 Last Admin: 09/01/19 08:42 Dose: 500 mg Documented by: Miscellaneous (Carbohydrates For Hypoglycemia) 15 - 30 gm PO UD PRN PRN Reason: Hypoglycemia Treatment Stop: 09/29/19 01:14 Multivitamins (Multivitamin Tab) 1 tab PO QAM [facility] Stop: 09/29/19 08:59 Last Admin: 09/01/19 08:42 Dose: 1 tab Documented by: Nicotine Polacrilex (Nicorette 2mg) 1 piece MT QID PRN PRN Reason: Smoking Cessation Stop: 09/29/19 00:13 Ondansetron HCl (Zofran) 4 mg IV Q6H PRN PRN Reason: Nausea Stop: 09/29/19 00:13 Last Admin: 08/31/19 17:39 Dose: 4 mg Documented by: Polyethylene Glycol (Miralax Powder Packet) 17 gm PO DAILY PRN PRN Reason: Constipation Stop: 09/29/19 00:13
[2019-09-01] MEDS ORDERED: CLINDAMYCIN HCL 150 MG CAP PO SCH (12:00)
--- NOTE | 2019-09-01 12:38 | Electrocardiogram Report ---
Test Reason : Blood Pressure : / mmHG Vent. Rate : 120 BPM Atrial Rate : 120 BPM P-R Int : 146 ms QRS Dur : 082 ms QT Int : 312 ms P-R-T Axes : 049 039 038 degrees QTc Int : 440 ms Sinus tachycardia Otherwise normal ECG When compared with ECG of 12-AUG-2019 10:21, Nonspecific T wave abnormality now evident in Inferior leads Confirmed by Ja Bustamante ([id number]) on 09/01/2019 12:37:59 PM Referred By: REFERRED SELF Confirmed By:Ja Bustamante
--- NOTE | 2019-09-02 08:51 | Discharge Summary ---
Date of Service September 02, 2019 Admission HPI Per Admitting Provider DICTATED BY: Krishan Rey MD DATE OF ADMISSION: 08/29/2019 CHIEF COMPLAINT: Infection of the thyroidectomy site. HISTORY OF PRESENT ILLNESS: This is a 64-year-old male with past medical history significant for type 2 diabetes, goiter, hyperlipidemia, chronic rhinitis, GERD, history of pericarditis, mild depression, hypertension, who is status post right thyroid lobectomy 2 weeks ago and he also had followup with ENT and sutures were taken out, but last 2 days he has noted neck swelling, having a lot of pain, so came to the ER, seen by ENT and incision and drainage was done with evacuating the seroma and packing with iodoform. Currently resting comfortably and hemodynamically stable. When he came to the ER, he had a mild temp spike and tachycardic. White count was 14.5. Lactate was 1.4. Rest of the labs were okay. The patient says after surgery he initially had difficulty swallowing, but he is swallowing okay, but the last few days, he had some nausea, but is able to keep his food down. Denies any shortness of breath. Has some mild headache. No dizziness. Somewhat hard of hearing. No earache, no runny nose. He has some sore throat. No cough, no chest pain. Normal bowel and bladder movements. No rash seen. Ambulates okay. Admission Exam Per Admitting Provider GENERAL: The patient is of moderate build, not in acute distress. VITAL SIGNS: Temperature T-max 37.8, pulse 99, respiratory rate 15, blood pressure 124/85, oxygen 94% on room air. HEENT: The pupils are equal, round, and reactive to light. NECK: Right thyroid lobectomy site is mildly erythematous and status post I and D, dressing seen. CARDIOVASCULAR: S1, S2 heard. Tachycardia. No murmurs. RESPIRATORY SYSTEM: Normal AP diameter. No accessory muscle use. No wheezing, no crackles. ABDOMEN: Soft, bowel sounds present, nontender. No distention. CENTRAL NERVOUS SYSTEM: Cranial nerves II-XII grossly intact. Nonfocal. EXTREMITIES: No edema, no erythema. Principal Diagnosis Postoperative wound infection, status post thyroidectomy for right thyroid nodule, depression Discharge Exam Constitutional well developed, well nourished, + acute distress (Neck pain and swelling), + ill appearing and + obese Eyes PERRL, conjunctivae normal, anicteric sclerae ENMT external ear and nose normal, oropharynx normal Neck trachea midline, no thyromegaly (Thyroid swelling and redness involving adjoining areas, status post thyroidectomy) Thyroid: + abnormal thyroid Respiratory normal respiratory effort; no respiratory distress Auscultation: lungs clear to auscultation bilaterally Cardiovascular Rate/Rhythm: regular rate and regular rhythm Heart Sounds: no murmur Gastrointestinal (Abdomen) Inspection/Auscultation: abdomen normal to inspection; abdomen not distended Percussion/Palpation: abdomen soft; abdomen nontender Neurologic moves all extremities; no focal motor deficits Discharge Data Allergies Allergy/AdvReac Type Severity Reaction Status Date / Time [id number] Reductase AdvReac Unknown MUSCLE Verified 08/15/19 06:24 Inhibitor ACHES Consultations 08/29/19 20:27 ED Decision to Admit Stat 08/30/19 00:14 Consult Case Management - Discharge Planning Routine Hospital Course (1) Deep postoperative wound infection: Early sepsis as per creatinine with leukocytosis, tachycardia and temperature high-temperature Status post right thyroid lobectomy about 2 weeks back Presented with lower anterior neck swelling with increased tenderness and re dness Blood cultures have been taken and the patient is on intravenous Dapto and Zosyn Appreciate ENT input and recommendation Status post incision and drainages. Wound culture showed staph in the deep wound-sensitivities pending Blood culture is negative so far We will continue current antibiotics Deep wound culture grew staph aureus and is sensitive to clindamycin Antibiotic changed to clindamycin to continue for next 5 days Discharge home this afternoon Has an appointment with ENT (2) Seroma after procedure: As above (3) Thyroid nodule: History of thyroidectomy for right thyroid nodule about 2 weeks back (4) Diabetes mellitus, type II: We will hold oral hypoglycemic agent SSI (5) Depression: No acute delirium Continue current medications DVT prophylaxis SCDs for now Increase ambulation Total Time Total Time Spent Total Time Spent (In Minutes): 35 minutes Total Time Includes: Examination of the Patient, Discharge Planning, Medication Reconciliation and Communication With Other Providers Discharge Plan Discharge Items Patient Disposition: Home - Self-Care Reason For Visit: NECK PAIN AT SURGERY SITE Discharge Diagnosis: Postoperative wound infection, status post thyroidectomy for right thyroid nodule, depression Condition on Discharge: Good Activity: Resume your previous activity Non-emergency contact: Primary Care Provider Call non-emergency contact if: you have any medication questions and your symptoms worsen Follow-up/Referrals: Antonina Grande, PAYunierC [Primary Care Provider] - (Please make an appointment with your primary care provider within 1 week) Diet: Carb Consistent or DM2 Addtl Attending Provider Instructions: Please finish your course of antibiotic Keep appointment with your ENT specialist Pending Studies at Discharge: No Stand-Alone Forms: My [facility], Smoking Cessation Medications and DC Order Prescriptions: New clindamycin HCl 150 mg Capsule 300 mg PO TID 5 Days Qty: 30 RF: 0 Lactinex 1 million cell tablet,chewable 1 tab PO TID Qty: 30 RF: 0 Continued atorvastatin 40 mg Tablet 40 mg PO HS RF: 0 Lantus U-100 Insulin 100 unit/mL Solution 18 unit SUBCUT BID RF: 0 metformin 1,000 mg Tablet 1,000 mg PO BID RF: 0 lisinopril 10 mg Tablet 10 mg PO HS RF: 0 aspirin 81 mg Tablet,Chewable 81 mg PO QAM RF: 0 diclofenac sodium 75 mg Tablet,Delayed Release (Dr/Ec) 75 mg PO BID RF: 0 multivitamin Capsule 1 cap PO QAM RF: 0 Victoza 2-Marc 0.6 mg/0.1 mL (18 mg/3 mL) Pen Injector 1.8 mg SUBCUT QAM RF: 0 methocarbamol 500 mg tablet 500 mg PO BID RF: 0 polyethylene glycol 3350 17 gram/dose powder 17 g PO DAILY PRN (Reason: Constipation) RF: 0 nicotine (polacrilex) 2 mg gum 2 mg buccal QID PRN (Reason: Smoking Cessation) RF: 0 Discharge Orders: Discharge Order (Routine); Ordered 09/01/19 Ordered By: Shawna Castellanos/Other Patient Handouts: Managing Type 2 Diabetes Admission Data Admit Date/Time: 08/29/19 23:15 Attending Provider: Shawna Alvarado Admit Provider: Krishan Rey Primary Care Provider: Antonina Grande Other Providers: Krishan Rey Other Interventions: Discharge Summary Assessment (RN) Last Done: 09/01/19 12:52 DC Date/Time DO NOT enter until pt leaves facility: 09/01/19 13:58
== END 2019-09-01 13:58 | disposition home or self-care (01) | DRG 856 ==
LOC: ED 18:18 → 3E 23:15

== ENCOUNTER 2024-04-19 14:31 | Observation (INO) ==
--- NOTE | 2024-04-19 15:10 | Emergency Department Note ---
Impression & Plan Abdominal pain, Ileitis, terminal ED Provider Note HISTORY OF PRESENT ILLNESS: Patient is a 68-year-old male presenting with "feeling sick." Patient reports that for the last week he has been feeling generally unwell and "sick of feeling like this." He states he is not nauseous since had intermittent episodes of generalized abdominal pain. He complains of intermittent diarrhea and constipation. He states that for the last 2 weeks he has been having a runny nose but denies any cough. Denies any chest pain or shortness of breath. He states that he has episodes of getting a hot and sweaty and then very cold for the last week. Patient was encouraged to present to the emergency department by his who is currently admitted to the hospital. ROS: as above PHYSICAL EXAM: Constitutional: Patient appears in no acute distress. HENT: Head: Normocephalic and atraumatic. Eyes: EOMI, PERRL Mouth/Throat: Mucous membranes moist. Neck: Trachea midline. Neck supple. Cardiovascular: RRR, No murmurs, rubs or gallops. Intact distal pulses. Pulmonary/Chest: No respiratory distress. Breath sounds clear and equal bilaterally. No wheezes or rales. Abdominal: Abdomen soft, no tenderness, rebound or guarding. Musculoskeletal: No edema, tenderness or deformity noted. Skin: Warm and dry. No rash, erythema, pallor or cyanosis Psychiatric: Appropriate mood and affect for situation. Neurological: Alert and keenly responsive. CN II-XII grossly intact, moving all extremities equally and fully. MDM: - Vitals signs showed hypertension and tachycardia - History obtained via patient. History as above. - Chronic conditions affecting care: anxiety/depression; hypothyroidism; HTN; HLD; DM-2; GERD - Differential diagnoses include, but are not limited to: Bowel obstruction; viral syndrome; electrolyte abnormality; cholecystitis; appendicitis; diverticulitis; colitis - Order placed for continuous cardiac monitoring. At this time, monitor showed rate of 96 bpm with normal sinus rhythm, per my interpretation. - External medical records reviewed. Endocrinology visit note dated 03/12/2024 was reviewed. Patient follows in their clinic for nodular thyroid disease and hypothyroidism - Laboratory workup interpreted by myself showed normal WBC; normal PT/INR; slight hypokalemia (K 3.4); hyperglycemia (glucose 179) with normal anion gap; elevated total bilirubin (1.8 - though appears chronically elevated about 1.3- 1.4); normal AST/ALT; normal troponin; normal lipase - UA negative for infection - Viral respiratory panel negative - CT abdomen/pelvis with IV contrast "evidence of mild nonspecific distal/terminal ileitis." Also noted to have mild wall thickening of the distal stomach and enlarged fatty liver and mild splenomegaly. Gallbladder stones are noted and patient is noted to have "chronic cholecystitis" on the CT.Gallstones were noted with findings of chronic cholecystitis. - Stool PCR ordered, but patient unable to give sample in ER. - On reassessment, patient reports feeling very unwell and is complaining of generalized abdominal pain. Given 1 g of IV Tylenol and 2 g IV Rocephin for his terminal ileitis. - Discussed results with the patient. He reports he feels generally unwell and does not think he can care for himself at home, given his symptoms and that his is currently admitted. Will discuss case with hospitalist service. - Discussion was had with case management specialist about patient's case and need for admission - Hospitalist, Dr. Rey, consulted for admission - Patient admitted to [facility] hospitalist service for further evaluation and management. ASSESSMENT AND PLAN: Diagnosis: Abdominal pain; terminal ileitis Plan: Admit Past Med/Surg History Problem List (Updated 04/19/24 @ 19:17 by Kelly Ivey MD) Ileitis, terminal (Acute) Abdominal pain (Acute) Osteoarthritis of right shoulder Osteoarthritis of left shoulder Chronic constipation Sensory polyneuropathy Abnormal CT of the abdomen Encounter for pre-operative examination Lumbar post-laminectomy syndrome Anxiety Hypothyroidism Back pain with right-sided sciatica (Chronic) Depression (Chronic) Medical History Depression Anxiety Arthritis of neck History of colonic polyps Hypothyroidism Arthritis Glaucoma Epidural fibrosis Sacroiliitis, not elsewhere classified Hypertension H/O pericarditis Dyslipidemia Diabetes mellitus, type II GERD (gastroesophageal reflux disease) Spinal stenosis Surgical History Hx of cataract extraction History of back surgery S/P insertion of spinal cord stimulator History of operative procedure on lumbosacral spinal structure History of surgery on arm History of colonoscopy H/O partial thyroidectomy History of tooth extraction Hx of arthroscopy of left knee History of arthroscopic procedure on shoulder History of appendectomy Family History Other No family history of adverse response to anesthesia Social History Smoking Status: Never smoker Tobacco Type: Cigarettes Second Hand Exposure: No; Do You Dip or Chew Tobacco: Yes (quit over 1 month ago); Hx Alcohol Use: Yes Hx Substance Use: No Preferred Language: Bruneian Communication Ability: Effective Field Specialist Required: No Beliefs That Will Affect Care: None Current Living Situation: Spouse Feels Safe at Home: Yes Assistive Devices: Glasses and Hearing Aid - Bilateral Allergies Allergies Allergy/AdvReac Type Severity Reaction Status Date / Time fluvastatin Allergy Verified 03/12/24 13:39 niacin Allergy Verified 03/12/24 13:39 [From Niaspan Extended-Release] pravastatin [From Pravachol] Allergy Verified 03/12/24 13:39 simvastatin [From Zocor] Allergy Verified 03/12/24 13:39 Home Meds Home Medications Medication Instructions Recorded Confirmed aspirin 81 mg chewable tablet 81 mg PO QAM 08/11/19 04/19/24 metformin 1,000 mg tablet 1,000 mg PO BID 08/11/19 04/19/24 carboxymethylcellulose sodium 1 % 1 drp ophthalmic (eye) UD PRN Dry 12/04/22 04/19/24 eye liquid gel drops (Refresh Eyes Liquigel) diclofenac sodium 1 % topical gel 1 ea topical UD PRN Pain 12/04/22 04/19/24 lisinopril 20 mg tablet 20 mg PO HS 12/04/22 04/19/24 semaglutide 1 mg/dose (4 mg/3 mL) 1 mg subcut WK 12/04/22 04/19/24 subcutaneous pen injector (Ozempic) sertraline 100 mg tablet 50 mg PO QAM 12/04/22 04/19/24 naloxone 4 mg/actuation nasal spray 4 mg intranasal UD PRN as directed 01/18/23 04/19/24 atorvastatin 80 mg tablet 80 mg PO HS 03/12/24 04/19/24 blood sugar diagnostic (Accu-Chek 03/12/24 04/19/24 Guide test strips) buprenorphine 20 mcg/hour weekly 1 patch transdermal Q7D 03/12/24 04/19/24 transdermal patch gabapentin 600 mg tablet 1,200 mg PO BID 03/12/24 04/19/24 insulin glargine 100 unit/mL 16 unit subcut BID 03/12/24 04/19/24 subcutaneous solution (Lantus U-100 Insulin) nicotine (polacrilex) 4 mg gum 4 mg PO DAILY PRN NICOTINE 03/12/24 04/19/24 CESSATION multivitamin 1 tab PO DAILY 04/19/24 04/19/24 omega-3 fatty acids 1,000 mg 1,000 mg PO DAILY 04/19/24 04/19/24 capsule Previous Rx's Medication Instructions Recorded levothyroxine 125 mcg tablet 125 mcg PO QAM #100 tabs 03/22/23 pantoprazole 40 mg tablet,delayed 40 mg PO BID #180 tabs 10/01/23 release meloxicam 15 mg tablet 15 mg PO DAILY #30 tabs 02/26/24 Results & Data (ED) Vital Signs Vital Signs - 24 hr 04/19/24 14:38 04/19/24 15:11 04/19/24 15:11 Temperature 36.0 C L Temperature Source Temporal Artery Scan Pulse Rate 111 H 91 H Pulse Rate [Apical] 91 H Respiratory Rate 20 18 18 Respiratory Effort / Characteristics Blood Pressure 145/89 H Blood Pressure [Right Arm] 141/83 H Blood Pressure Mean 107 Blood Pressure Mean [Right Arm] 102 Pulse Oximetry 97 95 97 Oxygen Delivery Method Room Air Room Air Room Air Sepsis Recent Fever Within 48 Hours No Sepsis New/Unexplained Change in Mental Status N/A Sepsis Action Taken by Nursing No Action Required 04/19/24 16:05 04/19/24 17:00 04/19/24 18:41 Temperature Temperature Source Pulse Rate 90 Pulse Rate [Apical] 88 89 Respiratory Rate 16 18 Respiratory Effort / Characteristics Blood Pressure Blood Pressure [Right Arm] 151/95 H 151/86 H Blood Pressure Mean Blood Pressure Mean [Right Arm] 113 107 Pulse Oximetry 96 98 Oxygen Delivery Method Room Air Room Air Sepsis Recent Fever Within 48 Hours Sepsis New/Unexplained Change in Mental Status Sepsis Action Taken by Nursing 04/19/24 19:00 Temperature Temperature Source Pulse Rate Pulse Rate [Apical] 85 Respiratory Rate 18 Respiratory Effort / Characteristics Non-Labored Blood Pressure Blood Pressure [Right Arm] 143/90 H Blood Pressure Mean Blood Pressure Mean [Right Arm] 107 Pulse Oximetry 97 Oxygen Delivery Method Room Air Sepsis Recent Fever Within 48 Hours Sepsis New/Unexplained Change in Mental Status Sepsis Action Taken by Nursing Laboratory Data 04/19/24 15:07 04/19/24 15:07 Lab Results 04/19/24 04/19/24 Range/Units 15: 18:00 WBC 8.79 (4.8-10.8) K/ul RBC 4.61 L (4.70-6.10) M/uL Hgb 14.5 (14.0-18.0) g/dl Hct 40.3 L (42.0-52.0) % MCV 87.4 (80.0-100.0) fL MCH 31.5 (25.0-34.0) pg MCHC 36.0 (32.0-36.0) g/dL RDW Std Deviation 41.1 (36.4-46.3) fL RDW Coeff of Drake 13.1 (11.5-14.5) % Plt Count 248 (130-400) K/uL MPV 9.2 L (9.4-12.4) fL Immature Gran % (Auto) 0.3 % Neut % (Auto) 72.5 % Lymph % (Auto) 17.2 % [place] % (Auto) 8.1 % Eos % (Auto) 1.3 % Baso % (Auto) 0.6 % Neut # (Auto) 6.38 (1.40-6.50) K/uL Lymph # (Auto) 1.51 (1.20-3.40) K/uL [place] # (Auto) 0.71 H (0.11-0.59) K/uL Eos # (Auto) 0.11 (0.00-0.50) K/uL Baso # (Auto) 0.05 (0.00-0.20) K/uL Immature Gran # (Auto) 0.03 (0.01-0.20) K/uL PT 10.4 (9.0-12.0) Seconds INR 1.0 (0.9-1.1) Sodium 138 (136-145) mmol/L Potassium 3.4 L (3.5-5.1) mmol/L Chloride 104 (98-107) mmol/L Carbon Dioxide 28 (21-32) mmol/L Anion Gap 6 (3-11) BUN 19 (6-23) mg/dl Creatinine 1.20 (0.6-1.4) mg/dl Est Cr Clr Drug Dosing 59.3 ml/min eGFR 65.87 BUN/Creatinine Ratio 15.8 (10-20) Glucose 179 H (70-99(Fasting)) mg/dl Lactate 1.8 (0.4-2.0) mmol/L Calcium 9.4 (8.6-10.3) mg/dl Magnesium 1.9 (1.7-2.4) mg/dl Total Bilirubin 1.8 H (0.2-1.0) mg/dl AST 27 (13-39) U/L ALT 31 (7-52) U/L Alkaline Phosphatase 86 (34-104) U/L Troponin I High Sens 5.9 (0-20) pg/ml Total Protein 7.0 (6.0-8.3) gm/dl Albumin 4.5 (3.4-5.0) gm/dl Globulin 2.5 (2.5-4.0) gm/dl Albumin/Globulin Ratio 1.8 (0.9-2) Lipase 67 (11-82) U/L Urine Color Yellow Urine Appearance Clear (Clear) Urine pH 7.5 (4.5-7.5) Ur Specific [place] > 1.045 H (1.000-1.030) Urine Protein Negative (Negative) Urine Glucose (UA) Negative (Negative) Urine Ketones Negative (Negative) Urine Blood Negative (Negative) Urine Nitrite Negative (Negative) Urine Bilirubin Negative (Negative) Urine Urobilinogen Negative (Negative) Ur Leukocyte Esterase Negative (Negative) Adenovirus (PCR) Not Detected (NotDetected) B. pertussis DNA (PCR) Not Detected (NotDetected) B.parapertussis DNA PCR Not Detected (NotDetected) C. pneumoniae DNA (PCR) Not Detected (NotDetected) Coronavirus OC43 (PCR) Not Detected (NotDetected) Coronavirus HKU1 (PCR) Not Detected (NotDetected) Coronavirus 229E (PCR) Not Detected (NotDetected) SARS-CoV-2 (PCR) Not Detected (NotDetected) Coronavirus NL63 (PCR) Not Detected (NotDetected) Human Metapneumovir PCR Not Detected (NotDetected) Influenza Type A (PCR) Not Detected (NotDetected) Influenza Type B (PCR) Not Detected (NotDetected) M. pneumoniae (PCR) Not Detected (NotDetected) Parainfluenza 1 (PCR) Not Detected (NotDetected) Parainfluenza 2 (PCR) Not Detected (NotDetected) Parainfluenza 3 (PCR) Not Detected (NotDetected) Parainfluenza 4 (PCR) Not Detected (NotDetected) RSV (PCR) Not Detected (NotDetected) Entero/Rhino (PCR) Not Detected (NotDetected) Administered Medications Discontinued Medications Acetaminophen (Ofirmev) 1,000 mg in 100 mls @ 400 mls/hr IV NOW STA Stop: 04/19/24 19:16 Last Admin: 04/19/24 19:19 Dose: 400 mls/hr Documented By: DELIA Ceftriaxone Sodium (Rocephin) 2,000 mg in 50 mls @ 100 mls/hr IV NOW STA Stop: 04/19/24 19:31 Last Admin: 04/19/24 19:25 Dose: 100 mls/hr Documented By: DELIA Ioversol (Optiray 320 100ml) 93 ml IV ONCE ONE Stop: 04/19/24 16:37 Last Admin: 04/19/24 16:36 Dose: 93 ml Documented By: EDK Imaging Data Radiologist's Impression: Abdomen/Pelvis CT 04/19/24 16:19 EXAM: CT abd pelvis IV con only CLINICAL HISTORY: abd pain; vomiting. TECHNIQUE: Contrast-enhanced CT of the abdomen and pelvis was performed, with the following protocol: axial images with, and reconstructed coronal and sagittal images. Intravenous contrast Optiray 320 93ml was administered. One of the following dose reduction techniques was utilized for this exam: Automated exposure control, adjustment of the mA and/or kV according to patient size, and use of iterative reconstruction. CTDI 25.31 mGy. DLP 1217.33 mGy-cm. COMPARISON: Compared to CT of the abdomen and pelvis with IV contrast study 12/04/2022. FINDINGS: Abdomen: Liver: Enlarged liver measuring centimeters in length with fatty parenchyma. No focal lesions, cysts, or masses were identified. Hepatic vasculature and biliary ducts are unremarkable. Gallbladder and Biliary System: Calcified gallstones. The gallbladder is mildly contracted with mild wall thickening. No evidence of acute cholecystitis. The gallbladder is normal in size and shape. No pericholecystic fluid was identified. The common bile duct is normal in caliber without dilation. Pancreas: Pancreatic head, body, and tail are visualized and appear normal in size and density. No pancreatic masses or calcifications were noted. The pancreatic duct is not dilated. Spleen: Mild splenomegaly. No splenic lesions or masses were identified. Appendix: The appendix is not identified and reported surgically absent. Kidneys and Adrenal Glands: Small left renal stone. Two right renal cysts measure up to 7.7 cm. Small renal cortical hypodensities likely cysts. Mild bilateral perinephric stranding. Possible chronic pyelonephritis. Both kidneys are normal in size, shape, and position. Cortical thickness is within normal limits. No hydronephrosis. Adrenal glands are unremarkable with no evidence of masses or hyperplasia. Pelvis: Urinary Bladder: The bladder wall is mildly thickened, possible chronic cystitis No intraluminal lesions identified. Prostate: Mildly enlarged prostate. No focal lesions or masses identified. Seminal Vesicles: Normal in size and appearance. No abnormalities noted. Rectum and Sigmoid Colon: Normal wall thickness and no evidence of mass. Peritoneal and Retroperitoneal Structures: No free fluid or abnormal fluid collections were identified within the abdomen or pelvis. No lymphadenopathy was noted. Bowel: The distal stomach appears mildly thick-walled without edema or fat infiltration. Mild wall thickening of the distal ileum with minimal surrounding fatty infiltration, mild ileitis. Mild colonic diverticulosis without CT evidence of acute diverticulitis. The visualized bowel loops are normal in caliber. No evidence of bowel obstruction. Bones and Soft Tissues: Pelvic bones and soft tissues are unremarkable. Stimulator device is present in the soft tissues of the lower back with intrathecal leads in place. A new device is noted in the upper left thigh. Lumbar spine spondylotic and L3-4 vertebral endplate degenerative changes with large anterior osteophytes. Lumbar postsurgical changes with lumbar internal fixation from L4 to S1 and intact hardware. Mild retrolisthesis of L4 over L5 and L3 over L4 lumbar vertebrae. Small fat-containing umbilical hernia. Small fat-containing right inguinal hernia. Lung bases: Minimal right basal atelectasis. Atherosclerotic aortic calcifications. IMPRESSION: 1. Evidence of a mild nonspecific distal/terminal ileitis. This is likely on an infectious or inflammatory etiology, please correlate clinically. 2. Redemonstrated mild wall thickening of the distal stomach with no edema or fat infiltration. 3. Enlarged fatty liver mild splenomegaly. 4. Gallbladder stones with new CT signs of chronic cholecystitis. 5. Mild colonic diverticulosis without CT evidence of acute diverticulitis. 6. Stable other findings compared to study 12/04/2022. Electronically signed by Jay Bales 04-19-2024 6:04 PM Discharge Plan Visit Data Chief Complaint: Abdominal Pain Stated Complaint: ABDOMINAL ISSUES ED Provider: Kelly Ivey Discharge Problem: Abdominal pain, Ileitis, terminal Forms Stand Alone Forms: [employer] [facility] [place] [facility] [address] [employer] Prescriptions Prescriptions: No Action pantoprazole 40 mg tablet,delayed release (DR/EC) 40 mg PO BID Qty: 180 3RF Rx Instructions: Take 1 tablet by mouth twice daily levothyroxine 125 mcg tablet 125 mcg PO QAM Qty: 100 3RF (DME) Accu-Chek Guide test strips Strip See Rx Instructions .ROUTE Rx Instructions: Test blood sugar two times daily buprenorphine 20 mcg/hour patch weekly 1 patch transdermal Q7D gabapentin 600 mg tablet 1,200 mg PO BID meloxicam 15 mg tablet 15 mg PO DAILY Qty: 30 3RF metformin 1,000 mg Tablet 1,000 mg PO BID aspirin 81 mg Tablet,Chewable 81 mg PO QAM insulin glargine [Lantus U-100 Insulin] 100 unit/mL solution 16 unit SUBCUT BID lisinopril 20 mg tablet 20 mg PO HS sertraline 100 mg tablet 50 mg PO QAM carboxymethylcellulose sodium [Refresh Liquigel] 1 % drops, liquid gel 1 drp ophthalmic (eye) UD PRN (Reason: Dry Eyes) Patient Comments: both eyes diclofenac sodium 1 % gel 1 ea topical UD PRN (Reason: Pain) Rx Instructions: Apply a small amount to affected area three times daily as needed for pain. Ozempic 1 mg/dose (4 mg/3 mL) pen injector 1 mg SUBCUT WK Patient Comments: sunday last dose 12/31/23 atorvastatin 80 mg tablet 80 mg PO HS nicotine (polacrilex) 4 mg gum 4 mg PO DAILY PRN (Reason: NICOTINE CESSATION) Rx Instructions: Chew 4mg by mouth as needed for nicotine cessation naloxone 4 mg/actuation [place],Non-Aerosol 4 mg INTRANASAL UD PRN (Reason: as directed) Patient Comments: not needed/has script for /never got pain patches to use, that was reason why prescribed. omega-3 fatty acids 1,000 mg Capsule 1,000 mg PO DAILY multivitamin Tablet 1 tab PO DAILY Referrals Referrals: Antonina Gant PA-C [Primary Care Provider] -
[2024-04-19 15:35] LABS: Basophils # (auto) 0.05 K/uL (0.00-0.20); Basophils % (auto) 0.6 %; Eosinophils # (auto) 0.11 K/uL (0.00-0.50); Eosinophils % (auto) 1.3 %; Hematocrit (blood only) 40.3 % (42.0-52.0); Hemoglobin 14.5 g/dl (14.0-18.0); Immature Granulocytes # (auto) 0.03 K/uL (0.01-0.20); Immature Granulocytes % (auto) 0.3 %; Lymphocytes # (auto) 1.51 K/uL (1.20-3.40); Lymphocytes % (auto) 17.2 %; Mean Corpuscular Hemoglobin 31.5 pg (25.0-34.0); Mean Corpuscular Volume 87.4 fL (80.0-100.0); Mean Platelet Volume 9.2 fL (9.4-12.4); Monocytes # (auto) 0.71 K/uL (0.11-0.59); Monocytes % (auto) 8.1 %; Neutrophils # (auto) 6.38 K/uL (1.40-6.50); Neutrophils % (auto) 72.5 %; Platelet Count 248 K/uL (130-400); RDW Coefficient of Variation 13.1 % (11.5-14.5); RDW Standard Deviation 41.1 fL (36.4-46.3); Red Blood Count 4.61 M/uL (4.70-6.10); White Blood Count 8.79 K/ul (4.8-10.8)
[2024-04-19 15:51] LABS: Albumin Globulin Ratio 1.8 (0.9-2); Albumin Level 4.5 gm/dl (3.4-5.0); BUN Creatinine Ratio 15.8 (10-20); Bilirubin,Total 1.8 mg/dl (0.2-1.0); Calcium 9.4 mg/dl (8.6-10.3); Creatinine Clr Calc Pharmacy 59.3 ml/min; Globulin 2.5 gm/dl (2.5-4.0); Magnesium 1.9 mg/dl (1.7-2.4); Potassium 3.4 mmol/L (3.5-5.1)
[2024-04-19 15:58] LABS: Troponin I High Sensitivity 5.9 pg/ml (0-20)
[2024-04-19 16:00] LABS: Prothrombin Time 10.4 Seconds (9.0-12.0)
[2024-04-19 16:27] LABS: Adenovirus PCR Not Detected (NotDetected); Bordetella parapertussis PCR Not Detected (NotDetected); Bordetella pertussis PCR Not Detected (NotDetected); Chlamydia pneumoniae PCR Not Detected (NotDetected); Coronavirus 229E PCR Not Detected (NotDetected); Coronavirus CoV-2 (COVID19)PCR Not Detected (NotDetected); Coronavirus HKU1 PCR Not Detected (NotDetected); Coronavirus NL63 PCR Not Detected (NotDetected); Coronavirus OC43PCR Not Detected (NotDetected); Human Metapneumovirus PCR Not Detected (NotDetected); Influenza A PCR Not Detected (NotDetected); Influenza B PCR Not Detected (NotDetected); Mycoplasma pneumoniae PCR Not Detected (NotDetected); Parainfluenza Virus 1 PCR Not Detected (NotDetected); Parainfluenza Virus 2 PCR Not Detected (NotDetected); Parainfluenza Virus 3 PCR Not Detected (NotDetected); Parainfluenza Virus 4 PCR Not Detected (NotDetected); Respiratory Syncytial VirusPCR Not Detected (NotDetected); Rhinovirus/Enterovirus PCR Not Detected (NotDetected)
[2024-04-19] MEDS: OPTIRAY 320 100ml IV ONE (16:36)
--- NOTE | 2024-04-19 18:05 | CT Scan Report ---
EXAM: CT abd pelvis IV con only CLINICAL HISTORY: abd pain; vomiting. TECHNIQUE: Contrast-enhanced CT of the abdomen and pelvis was performed, with the following protocol: axial images with, and reconstructed coronal and sagittal images. Intravenous contrast Optiray 320 93ml was administered. One of the following dose reduction techniques was utilized for this exam: Automated exposure control, adjustment of the mA and/or kV according to patient size, and use of iterative reconstruction. CTDI 25.31 mGy. DLP 1217.33 mGy-cm. COMPARISON: Compared to CT of the abdomen and pelvis with IV contrast study 12/04/2022. FINDINGS: Abdomen: Liver: Enlarged liver measuring centimeters in length with fatty parenchyma. No focal lesions, cysts, or masses were identified. Hepatic vasculature and biliary ducts are unremarkable. Gallbladder and Biliary System: Calcified gallstones. The gallbladder is mildly contracted with mild wall thickening. No evidence of acute cholecystitis. The gallbladder is normal in size and shape. No pericholecystic fluid was identified. The common bile duct is normal in caliber without dilation. Pancreas: Pancreatic head, body, and tail are visualized and appear normal in size and density. No pancreatic masses or calcifications were noted. The pancreatic duct is not dilated. Spleen: Mild splenomegaly. No splenic lesions or masses were identified. Appendix: The appendix is not identified and reported surgically absent. Kidneys and Adrenal Glands: Small left renal stone. Two right renal cysts measure up to 7.7 cm. Small renal cortical hypodensities likely cysts. Mild bilateral perinephric stranding. Possible chronic pyelonephritis. Both kidneys are normal in size, shape, and position. Cortical thickness is within normal limits. No hydronephrosis. Adrenal glands are unremarkable with no evidence of masses or hyperplasia. Pelvis: Urinary Bladder: The bladder wall is mildly thickened, possible chronic cystitis No intraluminal lesions identified. Prostate: Mildly enlarged prostate. No focal lesions or masses identified. Seminal Vesicles: Normal in size and appearance. No abnormalities noted. Rectum and Sigmoid Colon: Normal wall thickness and no evidence of mass. Peritoneal and Retroperitoneal Structures: No free fluid or abnormal fluid collections were identified within the abdomen or pelvis. No lymphadenopathy was noted. Bowel: The distal stomach appears mildly thick-walled without edema or fat infiltration. Mild wall thickening of the distal ileum with minimal surrounding fatty infiltration, mild ileitis. Mild colonic diverticulosis without CT evidence of acute diverticulitis. The visualized bowel loops are normal in caliber. No evidence of bowel obstruction. Bones and Soft Tissues: Pelvic bones and soft tissues are unremarkable. Stimulator device is present in the soft tissues of the lower back with intrathecal leads in place. A new device is noted in the upper left thigh. Lumbar spine spondylotic and L3-4 vertebral endplate degenerative changes with large anterior osteophytes. Lumbar postsurgical changes with lumbar internal fixation from L4 to S1 and intact hardware. Mild retrolisthesis of L4 over L5 and L3 over L4 lumbar vertebrae. Small fat-containing umbilical hernia. Small fat-containing right inguinal hernia. Lung bases: Minimal right basal atelectasis. Atherosclerotic aortic calcifications. IMPRESSION: 1. Evidence of a mild nonspecific distal/terminal ileitis. This is likely on an infectious or inflammatory etiology, please correlate clinically. 2. Redemonstrated mild wall thickening of the distal stomach with no edema or fat infiltration. 3. Enlarged fatty liver mild splenomegaly. 4. Gallbladder stones with new CT signs of chronic cholecystitis. 5. Mild colonic diverticulosis without CT evidence of acute diverticulitis. 6. Stable other findings compared to study 12/04/2022. Electronically signed by Jay Bales 04-19-2024 6:04 PM
[2024-04-19 18:07] LABS: Appearance Urine Clear (Clear); Bilirubin Urine Negative (Negative); Blood Urine Negative (Negative); Color Urine Yellow; Glucose Urine UA Negative (Negative); Ketones Urine Negative (Negative); Leukocyte Esterase Urine Negative (Negative); Nitrite Urine Negative (Negative); Protein Urine Negative (Negative); Specific Gravity Urine > 1.045 (1.000-1.030); Urobilinogen Urine Negative (Negative); pH Urine 7.5 (4.5-7.5)
[2024-04-19] MEDS: ACETAMINOPHEN 1,000 MG/100 ML VIAL IV STA (19:19)
[2024-04-19] MEDS: cefTRIAXone SODIUM 2,000 MG/50 ML BAG IV STA (19:25)
--- NOTE | 2024-04-19 22:26 | History & Physical Report ---
Date of Service April 19, 2024 Assessment & Plan (1) Abdominal pain: Plan: 68-year-old male with past medical history significant for type 2 diabetes, goiter, dyslipidemia, scrotal varices, GERD, history of mild depression, history of pericarditis comes because of ongoing abdominal pain. Patient states he has been having abdominal pain all over the abdomen for about a week. Denies any nausea. He is having alternate diarrhea and constipation. Micturating okay. Appetite is down. Pain was 8/10 in severity. As it was not getting better he came to the ER today. Denies any chest pain or shortness of breath. No headache. Has some runny nose. No cough. No fevers. His is also admitted to the hospital. Hemodynamics are okay. Abdominal pain Going for about a week Terminal ileitis on CAT scan also on CT gall stones and chronic cholecystitis Will keep him on clear liquid diet, gentle fluids, pain control Consult GI in a.m. Observe in hospital Diabetes home Lantus Sliding scale Will monitor GERD On Protonix Depression On Zoloft Hypertension Lisinopril Hyperlipidemia On statin DVT prophylaxis Lovenox Disposition Observation medical floor Full code History of Present Illness Chief Complaint: Abdominal pain Primary Care Provider: Antonina Gant PA-C 68-year-old male with past medical history significant for type 2 diabetes, goiter, dyslipidemia, scrotal varices, GERD, history of mild depression, history of pericarditis comes because of ongoing abdominal pain. Patient states he has been having abdominal pain all over the abdomen for about a week. Denies any nausea. He is having alternate diarrhea and constipation. Micturating okay. Appetite is down. Pain was 8/10 in severity. As it was not getting better he came to the ER today. Denies any chest pain or shortness of breath. No headache. Has some runny nose. No cough. No fevers. His is also admitted to the hospital. Hemodynamics are okay. Past medical history. As mentioned above Past surgical history. Left ankle arthroscopy. Colonoscopy. Cystoscopy. Injection of lumbosacral spine. Lumbar hemilaminectomy. Right shoulder arthroscopy. Left elbow surgery. Back surgery. Appendectomy. Social history. Smoked 1 pack a day for 10 years. Alcohol occasional. No drug use. Family history. Mother had cervical cancer. Thyroid disorder. Father had pacemaker. Sister had depression. Allergies Allergy/AdvReac Type Severity Reaction Status Date / Time fluvastatin Allergy Verified 03/12/24 13:39 niacin Allergy Verified 03/12/24 13:39 [From Niaspan Extended-Release] pravastatin [From Pravachol] Allergy Verified 03/12/24 13:39 simvastatin [From Zocor] Allergy Verified 03/12/24 13:39 Home Medications Medication Instructions Recorded Confirmed Type aspirin 81 mg chewable tablet 81 mg PO QAM 08/11/19 04/19/24 History metformin 1,000 mg tablet 1,000 mg PO BID 08/11/19 04/19/24 History carboxymethylcellulose sodium 1 % 1 drp ophthalmic (eye) UD PRN Dry 12/04/22 04/19/24 History eye liquid gel drops (Refresh Eyes Liquigel) diclofenac sodium 1 % topical gel 1 ea topical UD PRN Pain 12/04/22 04/19/24 History lisinopril 20 mg tablet 20 mg PO HS 12/04/22 04/19/24 History semaglutide 1 mg/dose (4 mg/3 mL) 1 mg subcut WK 12/04/22 04/19/24 History subcutaneous pen injector (Ozempic) sertraline 100 mg tablet 50 mg PO QAM 12/04/22 04/19/24 History naloxone 4 mg/actuation nasal spray 4 mg intranasal UD PRN as directed 01/18/23 04/19/24 History levothyroxine 125 mcg tablet 125 mcg PO QAM #100 tabs 03/22/23 04/19/24 Rx pantoprazole 40 mg tablet,delayed 40 mg PO BID #180 tabs 10/01/23 04/19/24 Rx release meloxicam 15 mg tablet 15 mg PO DAILY #30 tabs 02/26/24 04/19/24 Rx atorvastatin 80 mg tablet 80 mg PO HS 03/12/24 04/19/24 History blood sugar diagnostic (Accu-Chek 03/12/24 04/19/24 History Guide test strips) buprenorphine 20 mcg/hour weekly 1 patch transdermal Q7D 03/12/24 04/19/24 History transdermal patch gabapentin 600 mg tablet 1,200 mg PO BID 03/12/24 04/19/24 History insulin glargine 100 unit/mL 16 unit subcut BID 03/12/24 04/19/24 History subcutaneous solution (Lantus U-100 Insulin) nicotine (polacrilex) 4 mg gum 4 mg PO DAILY PRN NICOTINE 03/12/24 04/19/24 History CESSATION multivitamin 1 tab PO DAILY 04/19/24 04/19/24 History omega-3 fatty acids 1,000 mg 1,000 mg PO DAILY 04/19/24 04/19/24 History capsule Past Med/Surg History Problem List (Updated 04/19/24 @ 19:17 by Kelly Ivey MD) Ileitis, terminal (Acute) Abdominal pain (Acute) Osteoarthritis of right shoulder Osteoarthritis of left shoulder Chronic constipation Sensory polyneuropathy Abnormal CT of the abdomen Encounter for pre-operative examination Lumbar post-laminectomy syndrome Anxiety Hypothyroidism Back pain with right-sided sciatica (Chronic) Depression (Chronic) Medical History Depression Anxiety Arthritis of neck History of colonic polyps Hypothyroidism Arthritis Glaucoma Epidural fibrosis Sacroiliitis, not elsewhere classified Hypertension H/O pericarditis Dyslipidemia Diabetes mellitus, type II GERD (gastroesophageal reflux disease) Spinal stenosis Surgical History Hx of cataract extraction History of back surgery S/P insertion of spinal cord stimulator History of operative procedure on lumbosacral spinal structure History of surgery on arm History of colonoscopy H/O partial thyroidectomy History of tooth extraction Hx of arthroscopy of left knee History of arthroscopic procedure on shoulder History of appendectomy Family History Other No family history of adverse response to anesthesia Social History Smoking Status: Never smoker Tobacco Type: Cigarettes Second Hand Exposure: No; Do You Dip or Chew Tobacco: Yes (quit over 1 month ago); Hx Alcohol Use: No Hx Substance Use: No Preferred Language: Sudanese Communication Ability: Effective Traffic Routing Engineer Required: No Beliefs That Will Affect Care: None Current Living Situation: Spouse Other Information That Helps Us Care for You: No Feels Safe at Home: Yes Safety Concerns: Feels Safe At This Time Assistive Devices: Hearing Aid - Bilateral and Hospital Bed Review of Systems Review of Systems: All systems reviewed & are unremarkable except as noted in HPI & below Physical Exam Physical Exam: General- Not in distress Head- atraumatic Eyes- PERRL. ENT- oropharynx clear Neck- supple, no JVD. Lungs- clear to auscultation no wheezing or crackles Heart- regular rhythm; no murmur, no gallop. Abdomen- normal bowel sounds, soft, diffuse discomfort, no distension. Extremities- no pretibial edema, no erythema seen Neuro- alert, oriented PERRL, no facial palsy; no dysarthria; moves extremities Results & Data Results & Data Vital Signs (Past 12 Hours) Vital Signs Temp Pulse Pulse Resp BP BP Pulse Ox 04/19/24 21:00 75 16 134/74 97 04/19/24 20:17 75 16 160/94 H 97 04/19/24 19:56 86 04/19/24 19:00 85 18 143/90 H 97 04/19/24 18:41 89 18 151/86 H 98 04/19/24 17:00 88 16 151/95 H 96 04/19/24 16:05 90 04/19/24 15:11 91 H 18 97 04/19/24 15:11 91 H 18 141/83 H 95 04/19/24 14:38 36.0 C L 111 H 20 145/89 H 97 O2 Del Method 04/19/24 21:00 Room Air 04/19/24 20:17 Room Air 04/19/24 19:56 04/19/24 19:00 Room Air 04/19/24 18:41 Room Air 04/19/24 17:00 Room Air 04/19/24 16:05 04/19/24 15:11 Room Air 04/19/24 15:11 Room Air 04/19/24 14:38 Room Air Diagnostic Findings Laboratory Results WBC 8.79 K/ul (4.8-10.8) 04/19/24 15:07 RBC 4.61 M/uL (4.70-6.10) L 04/19/24 15:07 Hgb 14.5 g/dl (14.0-18.0) 04/19/24 15:07 Hct 40.3 % (42.0-52.0) L 04/19/24 15:07 MCV 87.4 fL (80.0-100.0) 04/19/24 15:07 MCH 31.5 pg (25.0-34.0) 04/19/24 15:07 MCHC 36.0 g/dL (32.0-36.0) 04/19/24 15:07 RDW Std Deviation 41.1 fL (36.4-46.3) 04/19/24 15:07 RDW Coeff of [place] 13.1 % (11.5-14.5) 04/19/24 15:07 Plt Count 248 K/uL (130-400) 04/19/24 15:07 MPV 9.2 fL (9.4-12.4) L 04/19/24 15:07 Immature Gran % (Auto) 0.3 % 04/19/24 15:07 Neut % (Auto) 72.5 % 04/19/24 15:07 Lymph % (Auto) 17.2 % 04/19/24 15:07 [place] % (Auto) 8.1 % 04/19/24 15:07 Eos % (Auto) 1.3 % 04/19/24 15:07 Baso % (Auto) 0.6 % 04/19/24 15:07 Neut # (Auto) 6.38 K/uL (1.40-6.50) 04/19/24 15:07 Lymph # (Auto) 1.51 K/uL (1.20-3.40) 04/19/24 15:07 [place] # (Auto) 0.71 K/uL (0.11-0.59) H 04/19/24 15:07 Eos # (Auto) 0.11 K/uL (0.00-0.50) 04/19/24 15:07 Baso # (Auto) 0.05 K/uL (0.00-0.20) 04/19/24 15:07 Immature Gran # (Auto) 0.03 K/uL (0.01-0.20) 04/19/24 15:07 PT 10.4 Seconds (9.0-12.0) 04/19/24 15:07 INR 1.0 (0.9-1.1) 04/19/24 15:07 Sodium 138 mmol/L (136-145) 04/19/24 15:07 Potassium 3.4 mmol/L (3.5-5.1) L 04/19/24 15:07 Chloride 104 mmol/L (98-107) 04/19/24 15:07 Carbon Dioxide 28 mmol/L (21-32) 04/19/24 15:07 Anion Gap 6 (3-11) 04/19/24 15:07 BUN 19 mg/dl (6-23) 04/19/24 15:07 Creatinine 1.20 mg/dl (0.6-1.4) 04/19/24 15:07 Est Cr Clr Drug Dosing 59.3 ml/min 04/19/24 15:07 eGFR 65.87 04/19/24 15:07 BUN/Creatinine Ratio 15.8 (10-20) 04/19/24 15:07 Glucose 179 mg/dl (70-99(Fasting)) H 04/19/24 15:07 Lactate 1.8 mmol/L (0.4-2.0) 04/19/24 15:07 Calcium 9.4 mg/dl (8.6-10.3) 04/19/24 15:07 Magnesium 1.9 mg/dl (1.7-2.4) 04/19/24 15:07 Total Bilirubin 1.8 mg/dl (0.2-1.0) H 04/19/24 15:07 AST 27 U/L (13-39) 04/19/24 15:07 ALT 31 U/L (7-52) 04/19/24 15:07 Alkaline Phosphatase 86 U/L (34-104) 04/19/24 15:07 Troponin I High Sens 5.9 pg/ml (0-20) 04/19/24 15:07 Total Protein 7.0 gm/dl (6.0-8.3) 04/19/24 15:07 Albumin 4.5 gm/dl (3.4-5.0) 04/19/24 15:07 Globulin 2.5 gm/dl (2.5-4.0) 04/19/24 15:07 Albumin/Globulin Ratio 1.8 (0.9-2) 04/19/24 15:07 Lipase 67 U/L (11-82) 04/19/24 15:07 Urine Color Yellow 04/19/24 18:00 Urine Appearance Clear (Clear) 04/19/24 18:00 Urine pH 7.5 (4.5-7.5) 04/19/24 18:00 Ur Specific [place] > 1.045 (1.000-1.030) H 04/19/24 18:00 Urine Protein Negative (Negative) 04/19/24 18:00 Urine Glucose (UA) Negative (Negative) 04/19/24 18:00 Urine Ketones Negative (Negative) 04/19/24 18:00 Urine Blood Negative (Negative) 04/19/24 18:00 Urine Nitrite Negative (Negative) 04/19/24 18:00 Urine Bilirubin Negative (Negative) 04/19/24 18:00 Urine Urobilinogen Negative (Negative) 04/19/24 18:00 Ur Leukocyte Esterase Negative (Negative) 04/19/24 18:00 Adenovirus (PCR) Not Detected (NotDetected) 04/19/24 15:07 B. pertussis DNA (PCR) Not Detected (NotDetected) 04/19/24 15:07 B.parapertussis DNA PCR Not Detected (NotDetected) 04/19/24 15:07 C. pneumoniae DNA (PCR) Not Detected (NotDetected) 04/19/24 15:07 Coronavirus OC43 (PCR) Not Detected (NotDetected) 04/19/24 15:07 Coronavirus HKU1 (PCR) Not Detected (NotDetected) 04/19/24 15:07 Coronavirus 229E (PCR) Not Detected (NotDetected) 04/19/24 15:07 SARS-CoV-2 (PCR) Not Detected (NotDetected) 04/19/24 15:07 Coronavirus NL63 (PCR) Not Detected (NotDetected) 04/19/24 15:07 Human Metapneumovir PCR Not Detected (NotDetected) 04/19/24 15:07 Influenza Type A (PCR) Not Detected (NotDetected) 04/19/24 15:07 Influenza Type B (PCR) Not Detected (NotDetected) 04/19/24 15:07 M. pneumoniae (PCR) Not Detected (NotDetected) 04/19/24 15:07 Parainfluenza 1 (PCR) Not Detected (NotDetected) 04/19/24 15:07 Parainfluenza 2 (PCR) Not Detected (NotDetected) 04/19/24 15:07 Parainfluenza 3 (PCR) Not Detected (NotDetected) 04/19/24 15:07 Parainfluenza 4 (PCR) Not Detected (NotDetected) 04/19/24 15:07 RSV (PCR) Not Detected (NotDetected) 04/19/24 15:07 Entero/Rhino (PCR) Not Detected (NotDetected) 04/19/24 15:07 Impressions Abdomen/Pelvis CT 04/19/24 16:19 EXAM: CT abd pelvis IV con only CLINICAL HISTORY: abd pain; vomiting. TECHNIQUE: Contrast-enhanced CT of the abdomen and pelvis was performed, with the following protocol: axial images with, and reconstructed coronal and sagittal images. Intravenous contrast Optiray 320 93ml was administered. One of the following dose reduction techniques was utilized for this exam: Automated exposure control, adjustment of the mA and/or kV according to patient size, and use of iterative reconstruction. CTDI 25.31 mGy. DLP 1217.33 mGy-cm. COMPARISON: Compared to CT of the abdomen and pelvis with IV contrast study 12/04/2022. FINDINGS: Abdomen: Liver: Enlarged liver measuring centimeters in length with fatty parenchyma. No focal lesions, cysts, or masses were identified. Hepatic vasculature and biliary ducts are unremarkable. Gallbladder and Biliary System: Calcified gallstones. The gallbladder is mildly contracted with mild wall thickening. No evidence of acute cholecystitis. The gallbladder is normal in size and shape. No pericholecystic fluid was identified. The common bile duct is normal in caliber without dilation. Pancreas: Pancreatic head, body, and tail are visualized and appear normal in size and density. No pancreatic masses or calcifications were noted. The pancreatic duct is not dilated. Spleen: Mild splenomegaly. No splenic lesions or masses were identified. Appendix: The appendix is not identified and reported surgically absent. Kidneys and Adrenal Glands: Small left renal stone. Two right renal cysts measure up to 7.7 cm. Small renal cortical hypodensities likely cysts. Mild bilateral perinephric stranding. Possible chronic pyelonephritis. Both kidneys are normal in size, shape, and position. Cortical thickness is within normal limits. No hydronephrosis. Adrenal glands are unremarkable with no evidence of masses or hyperplasia. Pelvis: Urinary Bladder: The bladder wall is mildly thickened, possible chronic cystitis No intraluminal lesions identified. Prostate: Mildly enlarged prostate. No focal lesions or masses identified. Seminal Vesicles: Normal in size and appearance. No abnormalities noted. Rectum and Sigmoid Colon: Normal wall thickness and no evidence of mass. Peritoneal and Retroperitoneal Structures: No free fluid or abnormal fluid collections were identified within the abdomen or pelvis. No lymphadenopathy was noted. Bowel: The distal stomach appears mildly thick-walled without edema or fat infiltration. Mild wall thickening of the distal ileum with minimal surrounding fatty infiltration, mild ileitis. Mild colonic diverticulosis without CT evidence of acute diverticulitis. The visualized bowel loops are normal in caliber. No evidence of bowel obstruction. Bones and Soft Tissues: Pelvic bones and soft tissues are unremarkable. Stimulator device is present in the soft tissues of the lower back with intrathecal leads in place. A new device is noted in the upper left thigh. Lumbar spine spondylotic and L3-4 vertebral endplate degenerative changes with large anterior osteophytes. Lumbar postsurgical changes with lumbar internal fixation from L4 to S1 and intact hardware. Mild retrolisthesis of L4 over L5 and L3 over L4 lumbar vertebrae. Small fat-containing umbilical hernia. Small fat-containing right inguinal hernia. Lung bases: Minimal right basal atelectasis. Atherosclerotic aortic calcifications. IMPRESSION: 1. Evidence of a mild nonspecific distal/terminal ileitis. This is likely on an infectious or inflammatory etiology, please correlate clinically. 2. Redemonstrated mild wall thickening of the distal stomach with no edema or fat infiltration. 3. Enlarged fatty liver mild splenomegaly. 4. Gallbladder stones with new CT signs of chronic cholecystitis. 5. Mild colonic diverticulosis without CT evidence of acute diverticulitis. 6. Stable other findings compared to study 12/04/2022. Electronically signed by Jay Bales 04-19-2024 6:04 PM Code Status & VTE Plan VTE Prophylaxis Plan VTE Prophylaxis will be ordered: Yes
[2024-04-20] MEDS ORDERED: HYDROmorphone INJ 0.5 MG/0.5 ML SYR IV PRN (00:09)
[2024-04-20] MEDS ORDERED: ACETAMINOPHEN 325 MG TAB PO PRN (00:09)
[2024-04-20] MEDS ORDERED: GLUCOSE 40% GEL 15 GM TUBE PO PRN (00:09)
[2024-04-20] MEDS ORDERED: DEXTROSE 50% 50 ML SYRINGE IV PRN (00:09)
[2024-04-20] MEDS ORDERED: NALOXONE NASAL SPRAY 4 MG ER HOMEPACK PRN (00:09)
[2024-04-20] MEDS ORDERED: GLUCAGON FOR INJ 1 MG VIAL SQ PRN (00:09)
[2024-04-20] MEDS ORDERED: CARBOHYDRATES FOR HYPOGLYCEMIA PO PRN (00:09)
[2024-04-20] MEDS ORDERED: GLUCOSE 10 TAB/TUBE PO PRN (00:09)
[2024-04-20] MEDS ORDERED: ARTIFICIAL TEARS OP PRN (00:25)
[2024-04-20] MEDS: POTASSIUM CHLORIDE CRTAB 20 MEQ TABCR PO STA (00:29)
[2024-04-20] MEDS: SODIUM CHLORIDE 0.9% 1,000 ML IV SCH (00:29)
[2024-04-20 00:49] VITALS: RESP 16
[2024-04-20] MEDS: ENOXAPARIN INJ 40 MG/0.4 ML SYR SQ SCH (01:45)
[2024-04-20] MEDS: ONDANSETRON INJ 2 MG/ML 2 ML VIAL IV PRN (05:44)
[2024-04-20] MEDS: LEVOTHYROXINE SODIUM 125 MCG TABLET PO SCH (05:44)
[2024-04-20 06:54] LABS: Basophils # (auto) 0.05 K/uL (0.00-0.20); Basophils % (auto) 0.8 %; Eosinophils # (auto) 0.15 K/uL (0.00-0.50); Eosinophils % (auto) 2.3 %; Hematocrit (blood only) 36.9 % (42.0-52.0); Hemoglobin 13.4 g/dl (14.0-18.0); Immature Granulocytes # (auto) 0.02 K/uL (0.01-0.20); Immature Granulocytes % (auto) 0.3 %; Lymphocytes # (auto) 2.05 K/uL (1.20-3.40); Mean Corpuscular Hemoglobin 31.7 pg (25.0-34.0); Mean Corpuscular Hgb Conc 36.3 g/dL (32.0-36.0); Mean Corpuscular Volume 87.2 fL (80.0-100.0); Mean Platelet Volume 9.7 fL (9.4-12.4); Monocytes # (auto) 0.66 K/uL (0.11-0.59); Neutrophils # (auto) 3.68 K/uL (1.40-6.50); Neutrophils % (auto) 55.6 %; Platelet Count 231 K/uL (130-400); RDW Coefficient of Variation 12.9 % (11.5-14.5); RDW Standard Deviation 40.5 fL (36.4-46.3); Red Blood Count 4.23 M/uL (4.70-6.10); White Blood Count 6.61 K/ul (4.8-10.8)
[2024-04-20 07:14] LABS: BUN Creatinine Ratio 17.8 (10-20); Calcium 8.8 mg/dl (8.6-10.3); Magnesium 1.9 mg/dl (1.7-2.4); Potassium 3.9 mmol/L (3.5-5.1)
[2024-04-20 07:30] VITALS: TEMP 98.1
[2024-04-20] MEDS: GABAPENTIN 600 MG TAB PO SCH (08:18)
[2024-04-20] MEDS: ASPIRIN 81 MG CHEW PO SCH (08:18)
[2024-04-20] MEDS: PANTOprazole 40 MG TAB PO SCH (08:19)
[2024-04-20] MEDS: SERTRALINE HCL 50 MG TABLET PO SCH (08:19)
[2024-04-20] MEDS: MULTIVITAMIN TAB PO SCH (08:19)
[2024-04-20 08:32] LABS: Estimated Average Glucose 143 mg/dl; Hemoglobin A1C 6.6 % (4.5-5.6)
[2024-04-20] MEDS: INSULIN ASPART PER UNIT CHARGE SC SCH (08:37)
[2024-04-20] MEDS: CHECK BUPRENORPHINE PATCH SCH (08:39)
[2024-04-20] MEDS: LANTUS PER UNIT CHARGE SQ SCH (08:40)
--- NOTE | 2024-04-20 11:34 | Gastrointestinal Consultation ---
Date of Consultation April 20, 2024 Assessment & Plan (1) Abdominal pain: On questioning his predominant symptoms that of nausea. This certainly could be medication related he is on numerous different medications also he is taking Ozempic which can be associated with nausea and vomiting. Previous inves tigations for the abnormalities noted on current CT including terminal ileitis and gastric wall thickening were both negative in April 2023 Consider discharging on Zofran as needed. He can follow-up with his usual planogrammer. (2) Ileitis, terminal: Wall thickening and some fatty infiltration could be consistent with Crohn's disease though an endoscopy a year ago for similar findings was negative (3) Abnormal CT of the abdomen: (4) History of colonic polyps: History of Present Illness Reason for Consultation: Abdominal pain abnormal CT Attending Physician: Nichole Valdivia MD History of Present Illness 68-year-old gentleman comes in with at least a week of worsening abdominal pain. Appears he has chronic discomfort. He was investigated a year ago for abdominal pain. That was an EGD and colonoscopy. No definite pathology identified. There was question of terminal ileitis at that time. [place] potentially be related to NSAIDs. Comes in now again with worsening abdominal pain over the last 5 to 7 days. On questioning he states his main complaint is nausea. He denies pain per se. States he just does not feel well. He has chronic constipation for which she takes as needed laxatives. He is on PPI therapy. Also takes gabapentin buprenorphine and naloxone. Takes meloxicam and diclofenac gel. Patient sitting at the edge of bed talking to his roommate. He appears in no acute distress. Feels better since medication provided last evening. Zofran ordered and Dilaudid Allergies Allergy/AdvReac Type Severity Reaction Status Date / Time fluvastatin Allergy Verified 03/12/24 13:39 niacin Allergy Verified 03/12/24 13:39 [From Niaspan Extended-Release] pravastatin [From Pravachol] Allergy Verified 03/12/24 13:39 simvastatin [From Zocor] Allergy Verified 03/12/24 13:39 Home Medications Medication Instructions Recorded Confirmed Type aspirin 81 mg chewable tablet 81 mg PO QAM 08/11/19 04/19/24 History metformin 1,000 mg tablet 1,000 mg PO BID 08/11/19 04/19/24 History carboxymethylcellulose sodium 1 % 1 drp ophthalmic (eye) UD PRN Dry 12/04/22 04/19/24 History eye liquid gel drops (Refresh Eyes Liquigel) diclofenac sodium 1 % topical gel 1 ea topical UD PRN Pain 12/04/22 04/19/24 History lisinopril 20 mg tablet 20 mg PO HS 12/04/22 04/19/24 History semaglutide 1 mg/dose (4 mg/3 mL) 1 mg subcut WK 12/04/22 04/19/24 History subcutaneous pen injector (Ozempic) sertraline 100 mg tablet 50 mg PO QAM 12/04/22 04/19/24 History naloxone 4 mg/actuation nasal spray 4 mg intranasal UD PRN as directed 01/18/23 04/19/24 History levothyroxine 125 mcg tablet 125 mcg PO QAM #100 tabs 03/22/23 04/19/24 Rx pantoprazole 40 mg tablet,delayed 40 mg PO BID #180 tabs 10/01/23 04/19/24 Rx release meloxicam 15 mg tablet 15 mg PO DAILY #30 tabs 02/26/24 04/19/24 Rx atorvastatin 80 mg tablet 80 mg PO HS 03/12/24 04/19/24 History blood sugar diagnostic (Accu-Chek 03/12/24 04/19/24 History Guide test strips) buprenorphine 20 mcg/hour weekly 1 patch transdermal Q7D 03/12/24 04/19/24 History transdermal patch gabapentin 600 mg tablet 1,200 mg PO BID 03/12/24 04/19/24 History insulin glargine 100 unit/mL 16 unit subcut BID 03/12/24 04/19/24 History subcutaneous solution (Lantus U-100 Insulin) nicotine (polacrilex) 4 mg gum 4 mg PO DAILY PRN NICOTINE 03/12/24 04/19/24 History CESSATION multivitamin 1 tab PO DAILY 04/19/24 04/19/24 History omega-3 fatty acids 1,000 mg 1,000 mg PO DAILY 04/19/24 04/19/24 History capsule Patient History Medical History Depression Anxiety Arthritis of neck History of colonic polyps Hypothyroidism Arthritis Glaucoma Epidural fibrosis Sacroiliitis, not elsewhere classified Hypertension H/O pericarditis Dyslipidemia Diabetes mellitus, type II GERD (gastroesophageal reflux disease) Spinal stenosis Surgical History Hx of cataract extraction History of back surgery S/P insertion of spinal cord stimulator History of operative procedure on lumbosacral spinal structure History of surgery on arm History of colonoscopy H/O partial thyroidectomy History of tooth extraction Hx of arthroscopy of left knee History of arthroscopic procedure on shoulder History of appendectomy Family History Other No family history of adverse response to anesthesia Social History Smoking Status: Never smoker Tobacco Type: Cigarettes Second Hand Exposure: No; Do You Dip or Chew Tobacco: Yes (quit over 1 month ago); Hx Alcohol Use: No Hx Substance Use: No Preferred Language: Serbian Communication Ability: Effective Gre Tutor Required: No Beliefs That Will Affect Care: None Current Living Situation: Spouse Other Information That Helps Us Care for You: No Feels Safe at Home: Yes Safety Concerns: Feels Safe At This Time Assistive Devices: Hearing Aid - Bilateral and Hospital Bed Review of Systems Review of Systems: Denies fevers chills night sweats unexplained weight loss Respiratory cardiovascular negative GI as mentioned history present illness Review of systems otherwise admitting H&P and without changes. Physical Exam Physical Exam: Patient does not appear acutely ill or toxic. Sitting at the edge of bed talking to his neighbor. The eyes reveal no jaundice Chest and heart exams normal Abdomen benign [employer] psych negative Exam otherwise negative Results & Data Vital Signs (Past 12 Hours) Vital Signs Temp Pulse Pulse Resp BP BP Pulse Ox 04/20/24 07:27 36.7 C 84 16 139/90 97 04/20/24 00:38 36.3 C L 81 16 159/96 H 98 04/19/24 23:35 74 18 152/97 H 94 O2 Del Method 04/20/24 07:27 Room Air 04/20/24 00:38 Room Air 04/19/24 23:35 Room Air PG Care Time/CCT Total # of Minutes Spent Total Time Spent with Patient: Total time spent is greater than 50% in coordination of care (as documented) at patient's floor/unit and/or counseling patient: Coding Level of Care Code 25962 INT INP/OBS CARE 1/40MIN Diagnoses Abdominal pain R10.9 Ileitis, terminal K50.[address] of the abdomen R93.5 History of colonic polyps Z86.010
[2024-04-20 11:35] VITALS: BP 160/80; PULSE 85; O2SAT 94
[2024-04-20 13:11] LABS: Adenovirus F 40/41 PCR Not Detected (NotDetected); Astrovirus PCR Not Detected (NotDetected); Campylobacter PCR Not Detected (NotDetected); Cryptosporidium PCR Not Detected (NotDetected); Cyclospora cayetanensis PCR Not Detected (NotDetected); Entamoeba histolytica PCR Not Detected (NotDetected); Enteroaggregative E.coli(EAEC) Not Detected (NotDetected); Enterotoxigenic E.coli (ETEC) Not Detected (NotDetected); Giardia lamblia PCR Not Detected (NotDetected); Norovirus GI/GII PCR Not Detected (NotDetected); Plesiomonas shigelloides PCR Not Detected (NotDetected); Rotavirus A PCR Not Detected (NotDetected); Salmonella PCR Not Detected (NotDetected); Sapovirus PCR Not Detected (NotDetected); Shiga-like Toxin E.coli (STEC) Not Detected (NotDetected); Shigella/Enteroinvasive E.coli Not Detected (NotDetected); Vibrio cholerae PCR Not Detected (NotDetected); Vibrio species PCR Not Detected (NotDetected); Yersinia enterocolitica PCR Not Detected (NotDetected)
[2024-04-20 13:22] LABS: Enteropathogenic E.coli (EPEC) DETECTED (NotDetected)
--- NOTE | 2024-04-20 13:55 | Discharge Summary ---
Discharge Summary Date of Service April 20, 2024 Principal Dx & Hospital Course #1 = Principal Diagnosis (1) Abdominal pain: Mr. Ibarra is a 68-year-old male with past medical history significant for type 2 diabetes, goiter, dyslipidemia, scrotal varices, GERD, history of mild depression, history of pericarditis comes because of ongoing abdominal pain. Patient states he has been having abdominal pain all over the abdomen for about a week. Patient has chronic abdominal pain and nausea ongoing, but reports this last week was more pronouced with diarrhea as well. CT revealed ilelitis and gastirtis like changed, however, EGD previously did not reveal anything remarkable contribuing to symptoms. GI evaluated and suspected likely multifactorial, considering patient is also on Ozempic. Biofire for stool with EPEC and given severeity of symptoms to warrant admission will treat x 3 days with azithromycin. #EPEC Gastroenteritis plan for 3 days azithromycin and plenty of oral hydration #Ileitis, terminal: #Abnormal CT abd/p Wall thickening and some fatty infiltration could be consistent with Crohn's disease though an endoscopy a year ago for similar findings was negative Follow up with [facility] Resume all home meds as prescribed Notes For Next Care Provider Medication Changes From Visit Azithromycin 500mg x 3 days Admission HPI Per Admitting Provider 68-year-old male with past medical history significant for type 2 diabetes, goiter, dyslipidemia, scrotal varices, GERD, history of mild depression, history of pericarditis comes because of ongoing abdominal pain. Patient states he has been having abdominal pain all over the abdomen for about a week. Denies any nausea. He is having alternate diarrhea and constipation. Micturating okay. Appetite is down. Pain was 8/10 in severity. As it was not getting better he came to the ER today. Denies any chest pain or shortness of breath. No headache. Has some runny nose. No cough. No fevers. His is also admitted to the hospital. Hemodynamics are okay. Past medical history. As mentioned above Past surgical history. Left ankle arthroscopy. Colonoscopy. Cystoscopy. Injection of lumbosacral spine. Lumbar hemilaminectomy. Right shoulder arthroscopy. Left elbow surgery. Back surgery. Appendectomy. Social history. Smoked 1 pack a day for 10 years. Alcohol occasional. No drug use. Family history. Mother had cervical cancer. Thyroid disorder. Father had pacemaker. Sister had depression. Admission Exam Per Admitting Provider General- Not in distress Head- atraumatic Eyes- PERRL. ENT- oropharynx clear Neck- supple, no JVD. Lungs- clear to auscultation no wheezing or crackles Heart- regular rhythm; no murmur, no gallop. Abdomen- normal bowel sounds, soft, diffuse discomfort, no distension. Extremities- no pretibial edema, no erythema seen Neuro- alert, oriented PERRL, no facial palsy; no dysarthria; moves extremities Discharge Exam Constitutional WD/WN, vitals as above Respiratory normal respiratory effort, lungs clear to auscultation Cardiovascular RRR, no murmur, no edema Gastrointestinal (Abdomen) normal bowel sounds, soft, nontender, no hepatosplenomegaly Updated Medication List Medication Instructions Recorded Confirmed Type aspirin 81 mg chewable tablet 81 mg PO QAM 08/11/19 04/19/24 History metformin 1,000 mg tablet 1,000 mg PO BID 08/11/19 04/19/24 History carboxymethylcellulose sodium 1 % 1 drp ophthalmic (eye) UD PRN Dry 12/04/22 04/19/24 History eye liquid gel drops (Refresh Eyes Liquigel) diclofenac sodium 1 % topical gel 1 ea topical UD PRN Pain 12/04/22 04/19/24 History lisinopril 20 mg tablet 20 mg PO HS 12/04/22 04/19/24 History semaglutide 1 mg/dose (4 mg/3 mL) 1 mg subcut WK 12/04/22 04/19/24 History subcutaneous pen injector (Ozempic) sertraline 100 mg tablet 50 mg PO QAM 12/04/22 04/19/24 History naloxone 4 mg/actuation nasal spray 4 mg intranasal UD PRN as directed 01/18/23 04/19/24 History levothyroxine 125 mcg tablet 125 mcg PO QAM #100 tabs 03/22/23 04/19/24 Rx pantoprazole 40 mg tablet,delayed 40 mg PO BID #180 tabs 10/01/23 04/19/24 Rx release meloxicam 15 mg tablet 15 mg PO DAILY #30 tabs 02/26/24 04/19/24 Rx atorvastatin 80 mg tablet 80 mg PO HS 03/12/24 04/19/24 History blood sugar diagnostic (Accu-Chek 03/12/24 04/19/24 History Guide test strips) buprenorphine 20 mcg/hour weekly 1 patch transdermal Q7D 03/12/24 04/19/24 History transdermal patch gabapentin 600 mg tablet 1,200 mg PO BID 03/12/24 04/19/24 History insulin glargine 100 unit/mL 16 unit subcut BID 03/12/24 04/19/24 History subcutaneous solution (Lantus U-100 Insulin) nicotine (polacrilex) 4 mg gum 4 mg PO DAILY PRN NICOTINE 03/12/24 04/19/24 History CESSATION multivitamin 1 tab PO DAILY 04/19/24 04/19/24 History omega-3 fatty acids 1,000 mg 1,000 mg PO DAILY 04/19/24 04/19/24 History capsule azithromycin 500 mg tablet 500 mg PO DAILY 2 days #2 tabs 04/20/24 Rx Hospital Stay Data Consultations 04/19/24 19:41 ED Decision to Admit Stat 04/20/24 08:00 Consult Gastroenterology Routine Diagnostic Imagining Performed 04/19/24 16:19 CT Abd and Pelvis [CT abd pelvis IV con only] Stat Pending Results Patient Have Any Pending Studies at Discharge: No Discharge Instructions Given to Patient (Per Discharging Provider) You were admitted for abdominal pain and found to have a gastroenteritis. You had an e coli infection, given your need for admission and pain, we will treat with a short course of antibiotic. Your next dose is tomorrow morning. Total Time Total Time Spent Total Time Spent (In Minutes): 35
[2024-04-20] MEDS: AZITHROMYCIN 250 MG TAB PO ONE (13:59)
[2024-04-20] MEDS ORDERED: lisinopril 20 MG TAB PO SCH (21:00)
[2024-04-20] MEDS ORDERED: ATORVASTATIN 40 MG TAB PO SCH (21:00)
[2024-04-24] MEDS ORDERED: BUPRENORPHINE 10 MCG/HR TDSY TD SCH (09:00)
== END 2024-04-20 14:37 | disposition home or self-care (01) ==
LOC: 3W 14:31 → ED 14:31 → 3W 23:35